=== PATIENT | female | born 1950 | race Caucasian/White ===

== ENCOUNTER → 2016-06-01 | Outpatient (CLI) | payer OTHER ==
[~2016-06-01] MED LIST: AMOX500T3 OR; ASPCH81X PO; CPR500 PO; CRESTOR PO; FLM4 PO; LISI20TA PO; LRT5 PO; METF-384 PO; METO100T44 PO; MULT-506 PO; NVLGI7030 SC; ONDA4TAB65 OR; PLN5 PO; RISACAL-D OR
--- NOTE | 2016-06-01 16:34 | MAMMOGRAPHY REPORT ---
BILATERAL DIGITAL SCREENING MAMMOGRAM WITH CAD: 06/01/2016 CLINICAL HISTORY: Routine screening. Patient has no complaints. TECHNIQUE: Current study was also evaluated with a Computer Aided Detection (CAD) system. Bilatera l CC and MLO views were obtained. COMPARISON: Comparison is made to exams dated: 05/28/2015 mammogram, 05/27/2014 mammogram, 05/26/2013 mammogram, 05/23/2012 mammogram, 05/23/2011 mammogram, and 05/18/2010 mammogram - [facility]. BREAST COMPOSITION: The tissue of both breasts is almost entirely fatty. FINDINGS: No suspicious masses, calcifications, or areas of architectural distortion are noted in e ither breast. There has been no significant interval change compared to prior exams. Scattered bilat eral benign-appearing calcifications are not significantly changed. IMPRESSION: ACR BI-RADS CATEGORY 2: BENIGN There is no mammographic evidence of malignancy. A 1 year screening mammogram is recommended. The p atient will receive written notification of the results. Approximately 10% of breast cancers are not detected with mammography. A negative mammographic repor t should not delay biopsy if a clinically suggestive mass is present. Margarita Butts M.D. ah/:06/01/2016 14:46:03 Director Customer: Celestino CAMACHO(R)(M), [facility] letter sent: Normal 1/2 BI-RADS Code: ACR BI-RADS Category 2: Benign
== END | disposition home or self-care (01) ==
LOC: C.MAMM 13:28
PROVIDERS: ATTEND Family Medicine
DX: Z12.31 Encounter for screening mammogram for malignant neoplasm of breast (principal)

== ENCOUNTER → 2017-06-05 | Outpatient (CLI) | payer OTHER ==
--- NOTE | 2017-06-05 14:24 | MAMMOGRAPHY REPORT ---
BILATERAL DIGITAL SCREENING MAMMOGRAM TOMOSYNTHESIS WITH CAD: 06/05/2017 CLINICAL HISTORY: Routine screening. TECHNIQUE: Breast tomosynthesis in addition to standard 2D mammography was performed. Current study was also evaluated with a Computer Aided Detection (CAD) system. COMPARISON: Comparison is made to exams dated: 06/01/2016 mammogram, 05/27/2014 mammogram, 05/28/2015 m ammogram, 05/26/2013 mammogram, 05/23/2012 mammogram, and 05/23/2011 mammogram - [facility]. BREAST COMPOSITION: There are scattered areas of fibroglandular density in both breasts. FINDINGS: The Francisco's ligaments in the breasts are increasingly conspicuous comparing to prior mammo grams, likely due to the reported interval weight loss of 100 pounds. There are scattered stable adam ign coarse calcifications bilaterally. No new suspicious mass, architectural distortion or cluster o f microcalcifications is seen. IMPRESSION: ACR BI-RADS CATEGORY 1: NEGATIVE There is no mammographic evidence of malignancy. A 1 year screening mammogram is recommended. The pa tient will receive written notification of the results. Approximately 10% of breast cancers are not detected with mammography. A negative mammographic report should not delay biopsy if a clinically suggestive mass is present. Elsy Wu M.D. ay/:06/05/2017 11:17:45 [employer]: Celestino CAMACHO(R)(M), [facility] letter sent: Normal 1/2 BI-RADS Code: ACR BI-RADS Category 1: Negative
== END | disposition home or self-care (01) ==
LOC: C.MAMM 08:48
PROVIDERS: ATTEND Family Medicine
DX: Z12.31 Encounter for screening mammogram for malignant neoplasm of breast (principal)

== ENCOUNTER 2023-07-28 20:27 | Inpatient (IN) ==
[2023-07-28] MEDS: ACETAMINOPHEN 1,000 MG/100 ML VIAL IV STA (20:53)
[2023-07-28] MEDS: PROMETHAZINE 12.5 MG/50.5 ML BAG IV STA (20:53)
[2023-07-28] MEDS: FAMOTIDINE 20MG IV PUSH 20 MG/5 ML SYR IV STA (20:53)
[2023-07-28] MEDS: SODIUM CHLORIDE 0.9% 1,000 ML IV ONE (20:53)
[2023-07-28 21:19] LABS: Albumin Globulin Ratio 1.1 (0.9-2); Albumin Level 3.9 gm/dl (3.4-5.0); Bilirubin,Total 0.8 mg/dl (0.2-1.0); Creatinine Clr Calc Pharmacy 20.1 ml/min; Est GFR (African American) 23.4 ml/min; Est GFR (Non-African American) 20.2 ml/min; Globulin 3.4 gm/dl (2.5-4.0); Potassium 4.4 mmol/L (3.5-5.1); Total Protein 7.3 gm/dl (6.0-8.3)
[2023-07-28 21:20] LABS: Basophils # (auto) 0.02 K/uL (0.00-0.20); Basophils % (auto) 0.1 %; Eosinophils # (auto) 0.01 K/uL (0.00-0.50); Eosinophils % (auto) 0.1 %; Hemoglobin 13.7 g/dl (12.0-16.0); Immature Granulocytes # (auto) 0.04 K/uL (0.01-0.20); Immature Granulocytes % (auto) 0.3 %; Lymphocytes # (auto) 0.49 K/uL (1.20-3.40); Lymphocytes % (auto) 3.7 %; Mean Corpuscular Hemoglobin 31.5 pg (25.0-34.0); Mean Corpuscular Hgb Conc 32.6 g/dL (32.0-36.0); Mean Corpuscular Volume 96.6 fL (80.0-100.0); Mean Platelet Volume 10.4 fL (9.4-12.4); Monocytes # (auto) 0.84 K/uL (0.11-0.59); Monocytes % (auto) 6.3 %; Neutrophils % (auto) 89.5 %; Platelet Count 178 K/uL (130-400); RDW Coefficient of Variation 12.7 % (11.5-14.5); RDW Standard Deviation 45.7 fL (36.4-46.3); Red Blood Count 4.35 M/uL (4.20-5.40)
[2023-07-28 21:23] LABS: Prothrombin Time 10.7 Seconds (9.0-12.0)
[2023-07-28 21:38] LABS: Troponin I High Sensitivity 8.2 pg/ml (0-14)
--- NOTE | 2023-07-28 21:38 | Emergency Department Note ---
Impression & Plan Hydronephrosis due to obstruction of ureter, Sepsis, Ureterolithiasis ED Provider Note NAME: BRAN MANN AGE: 73 SEX: F : 1950 ARRIVES VIA: Ambulance INFORMANT: Patient ED PROVIDER(S): Bart Guzmán MD CHIEF COMPLAINT: Back pain, weakness PLAN: Disposition: Admit MEDICAL DECISION MAKING: The patient is a pleasant 73-year-old woman with a past medical history of dementia, hypertension, hyperlipidemia, type 2 diabetes, nephrolithiasis who presents to the emergency department via EMS from her personal-snf at [facility] where she is in the memory care unit per EMS report, and accompanied by her brother, for evaluation of low back pain and fatigue/malaise with nausea and vomiting that began today. Patient denies any cough or congestion. She has any chest pain or shortness of breath. On my evaluation the patient is febrile to 37.8 with heart in the 90s and vital signs otherwise stable. She appears clinically dry. Abdomen is nontender. EKG demonstrates right bundle branch block with LVH without overt acute ischemia. CXR negative for acute cardiopulmonary process per my personal preliminary review/interpretation. WBC 13.4 K, with neutrophil predominance but no left shift, nonspecific. H/H and platelets within normal limits. Chemistry with mild metabolic acidosis with bicarbonate of 20 with normal anion gap. Creatinine is 2.3 mildly increased from the patient's baseline 1.8. Lactic acid is 1.0, within normal limits. Electrolytes and LFTs unremarkable. High-sensitivity troponin 8.2, within normal limits. Lipase is normal. Procalcitonin is not elevated. Respiratory viral panel/Bio[employer] was negative. CT of the abdomen pelvis demonstrates moderate left hydronephrosis secondary to a 5 x 3.9 mm proximal ureteral calculus. Given this finding the patient was treated with empiric IV cefepime. IV fluid hydration provided cautiously given renal insufficiency with 1 L normal saline and 30 cc/KG deferred. [id number] urine dip did not show convincing evidence of infection. Formal urinalysis subsequently with WBCs and RBCs but no bacteria or nitrates. Case was discussed with Dr. Washburn, [facility] hospitalist who will evaluate the patient for admission. Case also discussed with urology, Aakash Ruiz, PAC with Dr. Knight, urology on- call. Appreciate consultation and recommendations. Further management per admitting team. Triage Nursing notes reviewed and agree them. Prior/external medical records reviewed Vital Signs: reviewed Differential diagnosis: Infection, dehydration, metabolic abnormality, hypo/hyperglycemia, electrolyte disturbance, anemia, hypoxia, cardiac sources, intracerebral event, toxicologic, neurologic, as well as other pathologies. ER treatment provided: See below. Diagnostics interpreted by me: ECG: Normal sinus rhythm, 91 bpm, no ectopy, right bundle branch block, left anterior fascicular block, LVH, no overt ST elevation or depression, QTc 501, QRS 144. Cardiac Monitoring: An order for continuous cardiac monitoring was placed and demonstrated Laboratory studies: See below Imaging studies: See below Consultation(s): Dr. Washburn, [facility] hospitalist Aakash Ruiz, PAC with Dr. Knight, urology on-call HPI: The patient is a pleasant 73-year-old woman with a past medical history of dementia, hypertension, hyperlipidemia, type 2 diabetes, nephrolithiasis who presents to the emergency department via EMS from her personal-snf at [facility] where she is in the memory care unit per EMS report, and accompanied by her brother, for evaluation of low back pain and fatigue/malaise with nausea and vomiting that began today. Patient denies any cough or congestion. She has any chest pain or shortness of breath. ROS: See above HPI for pertinent positives & negatives. A total of 10 systems reviewed and were otherwise negative. VITALS:See Below PHYSICAL EXAMINATION: GENERAL: Awake, alert, fatigued-appearing, in no distress, BMI 29.7. HENT: Normocephalic, atraumatic. Oropharynx with dry mucous membranes and otherwise unremarkable. EYES: Normal conjunctiva. Sclera non-icteric. NECK: Supple. No nuchal rigidity. FROM. No JVD. RESPIRATORY: Clear to auscultation. CARDIAC: Regular rate, normal rhythm. Extremities warm and well perfused. Pulses equal. ABDOMEN: Soft, non-distended. No tenderness to palpation. No rebound or guarding. No masses. MUSCULOSKELETAL: Chest examination reveals no tenderness. The back is symmetrical on inspection without obvious abnormality. There is no CVA tenderness to palpation. No joint edema. LOWER EXTREMITIES: Calves are equal size bilaterally and non-tender. No edema. No discoloration. NEURO: Normal sensorium. No sensory or motor deficits noted. SKIN: No rash or jaundice noted. ED COURSE: Critical Care: I have personally spent greater than 35 minutes of critical care time in the direct management of this patient. This includes bedside care, interpretation of diagnostic studies, and testing, discussion with consultants, patient, and family members, and other required patient management activities. This 35 minutes is in excess of all separately billable procedures. Bart Guzmán MD Past Med/Surg History Problem List (Updated 07/29/23 @ 05:24 by Bart Guzmán MD) Ureterolithiasis (Acute) Sepsis (Acute) Hydronephrosis due to obstruction of ureter (Acute) Sepsis Nephrolithiasis Social History Smoking Status: Never smoker Hx Alcohol Use: No Hx Substance Use: No Preferred Language: Australian Communication Ability: Effective Field Checker Required: No Beliefs That Will Affect Care: None Current Living Situation: [facility] Current Living Situation Comment: [facility] Other Information That Helps Us Care for You: No Feels Safe at Home: Yes Safety Concerns: Feels Safe At This Time Assistive Devices: Glasses Allergies Allergies Allergy/AdvReac Type Severity Reaction Status Date / Time codeine AdvReac Severe CONFUSION, Verified 06/14/21 22:19 UNCONTROLABLE ACTIONS-PER [facility] morphine AdvReac Unknown Verified 07/29/23 00:32 Home Meds Home Medications Medication Instructions Recorded Confirmed amoxicillin 500 mg capsule 2,000 mg PO DIRECTED PRN PRIOR 06/14/21 07/29/23 TO DENTAL APPOINTMENTS atorvastatin 80 mg tablet 80 mg PO QAM 06/14/21 07/29/23 felodipine 5 mg tablet,extended 10 mg PO QAM 06/14/21 07/29/23 release 24 hr fluticasone propionate 50 2 spray intranasal DAILY 06/14/21 07/29/23 mcg/actuation nasal spray,suspension lisinopril 40 mg tablet 40 mg PO QAM 06/14/21 07/29/23 metoprolol succinate 100 mg 100 mg PO QAM 06/14/21 07/29/23 tablet,extended release 24 hr acetaminophen 500 mg tablet 1,000 mg PO TID PRN Pain 07/29/23 07/29/23 ascorbic acid (vitamin C) 1,000 mg 1 g PO QAM 07/29/23 07/29/23 tablet (Vitamin C) azelastine 137 mcg (0.1 %) nasal 1 spray intranasal BID 07/29/23 07/29/23 spray aerosol diclofenac sodium 1 % topical gel 4 g topical TID PRN MODERATE PAIN 07/29/23 07/29/23 IN FEET docusate sodium 100 mg capsule 100 mg PO HS 07/29/23 07/29/23 empagliflozin 10 mg tablet 10 mg PO QAM 07/29/23 07/29/23 (Jardiance) metoprolol succinate 25 mg 25 mg PO QAM 07/29/23 07/29/23 tablet,extended release 24 hr ondansetron HCl 4 mg tablet 4 mg PO Q6 PRN Nausea And Vomiting 07/29/23 07/29/23 semaglutide 1 mg/dose (4 mg/3 mL) 1 mg subcut WK 07/29/23 07/29/23 subcutaneous pen injector (Ozempic) vitamin E (dl, acetate) 180 mg 180 mg PO QAM 07/29/23 07/29/23 (400 unit) capsule Results & Data (ED) Vital Signs Vital Signs - 24 hr 07/28/23 20:37 07/28/23 20:37 07/28/23 20:48 Temperature 37.8 C H 37.8 C H Temperature Source Oral Oral Pulse Rate 93 H Pulse Rate [Apical] 91 H Respiratory Rate 18 16 Respiratory Depth Normal Blood Pressure 192/91 H Blood Pressure [Right Arm] 192/91 H Blood Pressure Mean 124 Blood Pressure Mean [Right Arm] 124 Pulse Oximetry 95 95 94 Oxygen Delivery Method Room Air Room Air Room Air Sepsis Recent Fever Within 48 Hours No Sepsis New/Unexplained Change in Mental Status No Sepsis Action Taken by Nursing No Action Required 07/28/23 20:53 07/28/23 22:14 07/28/23 22:19 Temperature 38.2 C H 37.3 C Temperature Source Rectal Oral Pulse Rate 91 H Pulse Rate [Apical] 92 H Respiratory Rate 17 Respiratory Depth Blood Pressure Blood Pressure [Right Arm] 183/96 H Blood Pressure Mean Blood Pressure Mean [Right Arm] 125 Pulse Oximetry 97 Oxygen Delivery Method Room Air Sepsis Recent Fever Within 48 Hours Sepsis New/Unexplained Change in Mental Status Sepsis Action Taken by Nursing Laboratory Data Attestation: I reviewed the patient's lab results. 07/29/23 03:53 07/29/23 03:53 Lab Results 07/28/23 07/28/23 07/28/23 Range/Units 20:45 21:00 23:54 WBC 13.40 H (4.8-10.8) K/ul RBC 4.35 (4.20-5.40) M/uL Hgb 13.7 (12.0-16.0) g/dl Hct 42.0 (37.0-47.0) % MCV 96.6 (80.0-100.0) fL MCH 31.5 (25.0-34.0) pg MCHC 32.6 (32.0-36.0) g/dL RDW Std Deviation 45.7 (36.4-46.3) fL RDW Coeff of Butch 12.7 (11.5-14.5) % Plt Count 178 (130-400) K/uL MPV 10.4 (9.4-12.4) fL Immature Gran % (Auto) 0.3 % Neut % (Auto) 89.5 % Lymph % (Auto) 3.7 % [place] % (Auto) 6.3 % Eos % (Auto) 0.1 % Baso % (Auto) 0.1 % Neut # (Auto) 12.00 H (1.40-6.50) K/uL Lymph # (Auto) 0.49 L (1.20-3.40) K/uL [place] # (Auto) 0.84 H (0.11-0.59) K/uL Eos # (Auto) 0.01 (0.00-0.50) K/uL Baso # (Auto) 0.02 (0.00-0.20) K/uL Immature Gran # (Auto) 0.04 (0.01-0.20) K/uL PT 10.7 (9.0-12.0) Seconds INR 1.0 (0.9-1.1) Sodium 137 (136-145) mmol/L Potassium 4.4 (3.5-5.1) mmol/L Chloride 106 (98-107) mmol/L Carbon Dioxide 20 L (21-32) mmol/L Anion Gap 11 (3-11) BUN 37 H (6-23) mg/dl Creatinine 2.31 H (0.6-1.2) mg/dl Est Cr Clr Drug Dosing 20.1 ml/min Est GFR ( Amer) 23.4 ml/min Est GFR (Non-Af Amer) 20.2 ml/min BUN/Creatinine Ratio 16.0 (10-20) Glucose 317 H* (70-99(Fasting)) mg/dl Lactate 1.0 (0.4-2.0) mmol/L Calcium 10.0 (8.6-10.3) mg/dl Magnesium 1.9 (1.7-2.4) mg/dl Total Bilirubin 0.8 (0.2-1.0) mg/dl AST 14 (13-39) U/L ALT 16 (7-52) U/L Alkaline Phosphatase 118 H (34-104) U/L Troponin I High Sens 8.2 (0-14) pg/ml Total Protein 7.3 (6.0-8.3) gm/dl Albumin 3.9 (3.4-5.0) gm/dl Globulin 3.4 (2.5-4.0) gm/dl Albumin/Globulin Ratio 1.1 (0.9-2) Lipase 26 (11-82) U/L Procalcitonin 0.37 (0-0.5) ng/ml Urine Color Yellow Urine Appearance Clear (Clear) Urine pH 6.5 (4.5-7.5) POC Urine pH 5 (4.5-7.5) Ur Specific [place] 1.019 (1.000-1.030) Urine Protein 3+ H (Negative) POC Urine Protein 3+ H (Negative) Urine Glucose (UA) 3+ H (Negative) POC Ur Glucose (UA) 1000 H (Normal) Urine Ketones 1+ H (Negative) POC Urine Ketones 1+ (Small) H (Negative) Urine Blood 2+ H (Negative) POC Urine Blood 50 H (Negative) Urine Nitrite Negative (Negative) POC Urine Nitrite Negative (Negative) Urine Bilirubin Negative (Negative) POC Urine Bilirubin Negative (Negative) Urine Urobilinogen Negative (Negative) POC Urine Urobilinogen Normal (Normal) Ur Leukocyte Esterase Negative (Negative) POC U Leukocyte Esteras Negative (Negative) Urine WBC (Auto) 21-50 H (0-5) /hpf Urine RBC (Auto) 11-20 H (0-2) /hpf U Hyaline Cast (Auto) 0-2 (0-2) /lpf U Epithel Cells (Auto) 0-2 (0-2) /hpf Urine Bacteria (Auto) None Seen (None Seen) Adenovirus (PCR) Not Detected (NotDetected) B. pertussis DNA (PCR) Not Detected (NotDetected) B.parapertussis DNA PCR Not Detected (NotDetected) C. pneumoniae DNA (PCR) Not Detected (NotDetected) Coronavirus OC43 (PCR) Not Detected (NotDetected) Coronavirus HKU1 (PCR) Not Detected (NotDetected) Coronavirus 229E (PCR) Not Detected (NotDetected) SARS-CoV-2 (PCR) Not Detected (NotDetected) Coronavirus NL63 (PCR) Not Detected (NotDetected) Human Metapneumovir PCR Not Detected (NotDetected) Influenza Type A (PCR) Not Detected (NotDetected) Influenza Type B (PCR) Not Detected (NotDetected) M. pneumoniae (PCR) Not Detected (NotDetected) Parainfluenza 1 (PCR) Not Detected (NotDetected) Parainfluenza 2 (PCR) Not Detected (NotDetected) Parainfluenza 3 (PCR) Not Detected (NotDetected) Parainfluenza 4 (PCR) Not Detected (NotDetected) RSV (PCR) Not Detected (NotDetected) Entero/Rhino (PCR) Not Detected (NotDetected) Administered Medications Sodium Chloride (Nss) 1,000 mls @ 80 mls/hr IV .[id number] ONE Stop: 07/29/23 13:08 Last Admin: 07/29/23 01:16 Dose: 80 mls/hr Documented By: AKIL Insulin Aspart (Insulin Aspart Per Unit Charge) 0 units SC Q6 JIGAR Stop: 08/28/23 00:44 Last Admin: 07/29/23 01:16 Dose: 7 units Documented By: AKIL Co-signed By: EJW Discontinued Medications Sodium Chloride (Nss) 1,000 mls @ 999 mls/hr IV .[id number] ONE Stop: 07/28/23 21:41 Last Infusion: 07/28/23 23:09 Dose: Infused Documented By: Admin: 07/28/23 20:53 Dose: 999 mls/hr Documented By: BCAb Acetaminophen (Ofirmev) 1,000 mg in 100 mls @ 400 mls/hr IV NOW STA Stop: 07/28/23 20:55 Last Infusion: 07/28/23 21:20 Dose: Infused Documented By: Admin: 07/28/23 20:53 Dose: 400 mls/hr Documented By: VANNA Promethazine HCl (Phenergan) 12.5 mg in 50.5 mls @ 202 mls/hr IV NOW STA Stop: 07/28/23 20:55 Last Infusion: 07/28/23 21:43 Dose: Infused Documented By: Admin: 07/28/23 20:53 Dose: 202 mls/hr Documented By: VANNA Famotidine (Pepcid 20mg Iv Push) 20 mg in 5 mls @ 2.5 mls/min IV NOW STA Stop: 07/28/23 20:43 Last Admin: 07/28/23 20:53 Dose: 2.5 mls/min Documented By: VANNA Cefepime HCl (Maxipime) 2,000 mg in 20 mls @ 5 mls/min IV NOW STA; Protocol Stop: 07/28/23 23:58 Last Admin: 07/29/23 01:16 Dose: 5 mls/min Documented By: AKIL Insulin Glargine (Lantus Per Unit Charge) 10 units SQ NOW STA Stop: 07/29/23 00:45 Last Admin: 07/29/23 01:16 Dose: 10 units Documented By: AKIL Co-signed By: KEV Metoprolol Tartrate (Metoprolol Tartrate 1 Mg/Ml Vial) 2.5 mg IV NOW STA Stop: 07/29/23 00:12 Last Admin: 07/29/23 01:15 Dose: 2.5 mg Documented By: AKIL Metoprolol Tartrate (Metoprolol Tartrate 1 Mg/Ml Vial) 2.5 mg IV NOW STA Stop: 07/29/23 02:45 Last Admin: 07/29/23 02:55 Dose: 2.5 mg Documented By: LIZ Tamsulosin HCl (Tamsulosin Hcl 0.4 Mg Cap) 0.4 mg PO NOW ONE Stop: 07/28/23 23:58 Last Admin: 07/29/23 01:15 Dose: 0.4 mg Documented By: AKIL Imaging Data Radiologist's Impression: Abdomen/Pelvis CT 07/28/23 21:09 Exam(s): CT ABDOMEN + PELVIS Without Contrast EXAM: CT Abdomen and Pelvis Without Intravenous Contrast CLINICAL HISTORY: Back Pain and fever TECHNIQUE: Axial computed tomography images of the abdomen and pelvis without intravenous contrast. CTDI is 23.75 mGy and DLP is 1165.62 mGy-cm. Automated exposure control was utilized for the study. A dose lowering technique was utilized adhering to the principles of ALARA. COMPARISON: CT abdomen and pelvis 06/14/2021 FINDINGS: Lung bases: Unremarkable. No mass. No consolidation. ABDOMEN: Liver: Unremarkable. Gallbladder and bile ducts: Cholecystectomy. No ductal dilation. Pancreas: Unremarkable. No ductal dilation. Spleen: Unremarkable. No splenomegaly. Adrenals: Unremarkable. No mass. Kidneys and ureters: Moderate left hydronephrosis secondary to a 5 x 3 9 mm proximal ureteral calculus. Additional nonobstructing renal calculi measure up to 6 mm. Simple appearing bilateral renal cysts are present, no follow up is needed. The kidneys are otherwise unremarkable. No hydronephrosis. No right hydronephrosis. Stomach and bowel: Diverticulosis. No obstruction. No mucosal thickening. PELVIS: Appendix: Normal appendix. Bladder: Unremarkable. No stones. Reproductive: Unremarkable as visualized. ABDOMEN and PELVIS: Intraperitoneal space: Unremarkable. No free air. No significant fluid collection. Bones/joints: There are degenerative changes of the spine. No acute fracture. No dislocation. Soft tissues: Unremarkable. Vasculature: Mild atherosclerosis. No abdominal aortic aneurysm. Lymph nodes: Unremarkable. No enlarged lymph nodes. IMPRESSION: 1. Moderate left hydronephrosis secondary to a 5 x 3 9 mm proximal ureteral calculus. 2. Additional nonobstructing renal calculi measure up to 6 mm. 3. Diverticulosis. Electronically signed by: Emilie Carcamo MD 07/28/23 23:09 PM Discharge Plan Visit Data Chief Complaint: Flank Pain Stated Complaint: lt FLANK PAIN ED Provider: Bart Guzmán Discharge Problem: Hydronephrosis due to obstruction of ureter, Sepsis, Ureterolithiasis Patient Disposition: Admitted As Inpatient Discharge Instructions Interventions: ED Discharge Assessment Last Done: 07/29/23 02:28 Discharge Problem: Sepsis Qualifiers: Sepsis type: sepsis due to unspecified organism Sepsis acute organ dysfunction status: unspecified Qualified Code(s): A41.9 - Sepsis, unspecified organism
[2023-07-28 21:43] LABS: Adenovirus PCR Not Detected (NotDetected); Bordetella parapertussis PCR Not Detected (NotDetected); Bordetella pertussis PCR Not Detected (NotDetected); Chlamydia pneumoniae PCR Not Detected (NotDetected); Coronavirus 229E PCR Not Detected (NotDetected); Coronavirus CoV-2 (COVID19)PCR Not Detected (NotDetected); Coronavirus HKU1 PCR Not Detected (NotDetected); Coronavirus NL63 PCR Not Detected (NotDetected); Coronavirus OC43PCR Not Detected (NotDetected); Human Metapneumovirus PCR Not Detected (NotDetected); Influenza A PCR Not Detected (NotDetected); Influenza B PCR Not Detected (NotDetected); Mycoplasma pneumoniae PCR Not Detected (NotDetected); Parainfluenza Virus 1 PCR Not Detected (NotDetected); Parainfluenza Virus 2 PCR Not Detected (NotDetected); Parainfluenza Virus 3 PCR Not Detected (NotDetected); Parainfluenza Virus 4 PCR Not Detected (NotDetected); Respiratory Syncytial VirusPCR Not Detected (NotDetected); Rhinovirus/Enterovirus PCR Not Detected (NotDetected)
--- NOTE | 2023-07-28 23:09 | CT Scan Report ---
Exam(s): CT ABDOMEN + PELVIS Without Contrast EXAM: CT Abdomen and Pelvis Without Intravenous Contrast CLINICAL HISTORY: Back Pain and fever TECHNIQUE: Axial computed tomography images of the abdomen and pelvis without intravenous contrast. CTDI is 23.75 mGy and DLP is 1165.62 mGy-cm. Automated exposure control was utilized for the study. A dose lowering technique was utilized adhering to the principles of ALARA. COMPARISON: CT abdomen and pelvis 06/14/2021 FINDINGS: Lung bases: Unremarkable. No mass. No consolidation. ABDOMEN: Liver: Unremarkable. Gallbladder and bile ducts: Cholecystectomy. No ductal dilation. Pancreas: Unremarkable. No ductal dilation. Spleen: Unremarkable. No splenomegaly. Adrenals: Unremarkable. No mass. Kidneys and ureters: Moderate left hydronephrosis secondary to a 5 x 3 9 mm proximal ureteral calculus. Additional nonobstructing renal calculi measure up to 6 mm. Simple appearing bilateral renal cysts are present, no follow up is needed. The kidneys are otherwise unremarkable. No hydronephrosis. No right hydronephrosis. Stomach and bowel: Diverticulosis. No obstruction. No mucosal thickening. PELVIS: Appendix: Normal appendix. Bladder: Unremarkable. No stones. Reproductive: Unremarkable as visualized. ABDOMEN and PELVIS: Intraperitoneal space: Unremarkable. No free air. No significant fluid collection. Bones/joints: There are degenerative changes of the spine. No acute fracture. No dislocation. Soft tissues: Unremarkable. Vasculature: Mild atherosclerosis. No abdominal aortic aneurysm. Lymph nodes: Unremarkable. No enlarged lymph nodes. IMPRESSION: 1. Moderate left hydronephrosis secondary to a 5 x 3 9 mm proximal ureteral calculus. 2. Additional nonobstructing renal calculi measure up to 6 mm. 3. Diverticulosis. Electronically signed by: Emilie Carcamo MD 07/28/23 23:09 PM
--- NOTE | 2023-07-28 23:58 | History & Physical Report ---
Date of Service July 28, 2023 Assessment & Plan (1) Sepsis: Plan: Secondary to obstructive uropathy Hypertensive urgency secondary to above severe MR status post surgery hyperlipidemia on statin Rx ANG currently not on CPAP DM2 on oral medications, patient markedly hyperglycemic at the ER, reasonable control as of last hemoglobin A1c of 8.12 September 2022 CRI, creatinine close to baseline hyperparathyroidism secondary to kidney disease as per outpatient nephrology notes dementia, patient at baseline malignant melanoma status post surgery Medical telemetry given hypertensive urgency IV Lopressor 1 dose now CS, Ceftriaxone Analgesia Flomax, strain urine Urology consult Re: Obstructive uropathy (ED provider to contact service as per discussion.) N.p.o. until seen by urology in anticipation of procedure Basal bolus insulin adjusted for n.p.o. status, ISS BG goal 1 10-1 40, update hemoglobin A1c Delirium precautions DVT prophylaxis with Heparin subcu Full code as per patient brother/POA Mr. Héctor Escobar. He requests updates from providers through [phone]. Text document was generated using [employer] voice recognition software. It may contain grammatical or spelling errors. Kindly contact undersigned for clarification of any documentation item in question. History of Present Illness Chief Complaint: Left flank pain Primary Care Provider: [facility], [facility] History obtained from patient, family, and records. Patient is a fair historian. Medical history significant for severe MR status post surgery, bifascicular block as per records, hypertension, hyperlipidemia, ANG currently not on CPAP, DM2 on oral medications, CRI (baseline creatinine 2s), hyperparathyroidism as per records, dementia, urolithiasis, malignant melanoma status post surgery. 1 day history of achy left flank pain associated with nausea, emesis. No hematuria as per patient. Not as bad as prior kidney stones as per patient. No headache, no chest pain, no SOB. SBP 190s upon arrival at the ER. IV cefepime administered at the ER. Medical History as above Surgical History : Cholecystectomy, mitral valve repair, right lower leg melanoma excision, cataract surgeries Family History : DM, TIA, thyroid disease Personal/Social history : Non-smoker, no EtOH intake, retired from factory work, personal halfway resident Allergies Allergy/AdvReac Type Severity Reaction Status Date / Time codeine AdvReac Severe CONFUSION, Verified 06/14/21 22:19 UNCONTROLABLE ACTIONS-PER GMG morphine AdvReac Unknown Verified 07/29/23 00:32 Home Medications Medication Instructions Recorded Confirmed Type amoxicillin 500 mg capsule 2,000 mg PO DIRECTED PRN PRIOR 06/14/21 07/29/23 History TO DENTAL APPOINTMENTS atorvastatin 80 mg tablet 80 mg PO QAM 06/14/21 07/29/23 History felodipine 5 mg tablet,extended 10 mg PO QAM 06/14/21 07/29/23 History release 24 hr fluticasone propionate 50 2 spray intranasal DAILY 06/14/21 07/29/23 History mcg/actuation nasal spray,suspension lisinopril 40 mg tablet 40 mg PO QAM 06/14/21 07/29/23 History metoprolol succinate 100 mg 100 mg PO QAM 06/14/21 07/29/23 History tablet,extended release 24 hr acetaminophen 500 mg tablet 1,000 mg PO TID PRN Pain 07/29/23 07/29/23 History ascorbic acid (vitamin C) 1,000 mg 1 g PO QAM 07/29/23 07/29/23 History tablet (Vitamin C) azelastine 137 mcg (0.1 %) nasal 1 spray intranasal BID 07/29/23 07/29/23 History spray aerosol diclofenac sodium 1 % topical gel 4 g topical TID PRN MODERATE PAIN 07/29/23 07/29/23 History IN FEET docusate sodium 100 mg capsule 100 mg PO HS 07/29/23 07/29/23 History empagliflozin 10 mg tablet 10 mg PO QAM 07/29/23 07/29/23 History (Jardiance) metoprolol succinate 25 mg 25 mg PO QAM 07/29/23 07/29/23 History tablet,extended release 24 hr ondansetron HCl 4 mg tablet 4 mg PO Q6 PRN Nausea And Vomiting 07/29/23 07/29/23 History semaglutide 1 mg/dose (4 mg/3 mL) 1 mg subcut WK 07/29/23 07/29/23 History subcutaneous pen injector (Ozempic) vitamin E (dl, acetate) 180 mg 180 mg PO QAM 07/29/23 07/29/23 History (400 unit) capsule Past Med/Surg History Problem List (Updated 07/29/23 @ 01:14 by Jesus Washburn MD) Sepsis Nephrolithiasis Social History Smoking Status: Never smoker Preferred Language: Danish Feels Safe at Home: Yes Review of Systems Review of Systems: As per HPI, all other systems reviewed and negative Physical Exam Physical Exam: GENERAL: Demented, oriented to place,, pleasant, no respiratory distress SKIN: Normal color, warm HEENT: [place] palpebral conjunctivae, no ptosis, dry buccal mucosa NECK : Supple, no tenderness CHEST : CTA, no tenderness HEART : RRR, no obvious murmurs ABDOMEN: Some distention, nontender BACK : Left flank tenderness EXTREMITIES : No LE swelling/tenderness, no other conspicuous deformities noted NEUROLOGIC : Demented, no facial asymmetry, no other gross focality Results & Data Results & Data Vital Signs (Past 12 Hours) Vital Signs Temp Pulse Pulse Resp BP BP Pulse Ox 07/28/23 22:19 37.3 C 92 H 17 183/96 H 97 07/28/23 22:14 91 H 07/28/23 20:53 38.2 C H 07/28/23 20:48 94 07/28/23 20:37 37.8 C H 91 H 16 192/91 H 95 07/28/23 20:37 37.8 C H 93 H 18 192/91 H 95 O2 Del Method 07/28/23 22:19 Room Air 07/28/23 22:14 07/28/23 20:53 07/28/23 20:48 Room Air 07/28/23 20:37 Room Air 07/28/23 20:37 Room Air Laboratory Results Laboratory Results WBC 13.40 K/ul (4.8-10.8) H 07/28/23 20:45 RBC 4.35 M/uL (4.20-5.40) 07/28/23 20:45 Hgb 13.7 g/dl (12.0-16.0) 07/28/23 20:45 Hct 42.0 % (37.0-47.0) 07/28/23 20:45 MCV 96.6 fL (80.0-100.0) 07/28/23 20:45 MCH 31.5 pg (25.0-34.0) 07/28/23 20:45 MCHC 32.6 g/dL (32.0-36.0) 07/28/23 20:45 RDW Std Deviation 45.7 fL (36.4-46.3) 07/28/23 20:45 RDW Coeff of Butch 12.7 % (11.5-14.5) 07/28/23 20:45 Plt Count 178 K/uL (130-400) 07/28/23 20:45 MPV 10.4 fL (9.4-12.4) 07/28/23 20:45 Immature Gran % (Auto) 0.3 % 07/28/23 20:45 Neut % (Auto) 89.5 % 07/28/23 20:45 Lymph % (Auto) 3.7 % 07/28/23 20:45 [place] % (Auto) 6.3 % 07/28/23 20:45 Eos % (Auto) 0.1 % 07/28/23 20:45 Baso % (Auto) 0.1 % 07/28/23 20:45 Neut # (Auto) 12.00 K/uL (1.40-6.50) H 07/28/23 20:45 Lymph # (Auto) 0.49 K/uL (1.20-3.40) L 07/28/23 20:45 [place] # (Auto) 0.84 K/uL (0.11-0.59) H 07/28/23 20:45 Eos # (Auto) 0.01 K/uL (0.00-0.50) 07/28/23 20:45 Baso # (Auto) 0.02 K/uL (0.00-0.20) 07/28/23 20:45 Immature Gran # (Auto) 0.04 K/uL (0.01-0.20) 07/28/23 20:45 PT 10.7 Seconds (9.0-12.0) 07/28/23 20:45 INR 1.0 (0.9-1.1) 07/28/23 20:45 Sodium 137 mmol/L (136-145) 07/28/23 20:45 Potassium 4.4 mmol/L (3.5-5.1) 07/28/23 20:45 Chloride 106 mmol/L (98-107) 07/28/23 20:45 Carbon Dioxide 20 mmol/L (21-32) L 07/28/23 20:45 Anion Gap 11 (3-11) 07/28/23 20:45 BUN 37 mg/dl (6-23) H 07/28/23 20:45 Creatinine 2.31 mg/dl (0.6-1.2) H 07/28/23 20:45 Est Cr Clr Drug Dosing 20.1 ml/min 07/28/23 20:45 Est GFR ( Amer) 23.4 ml/min 07/28/23 20:45 Est GFR (Non-Af Amer) 20.2 ml/min 07/28/23 20:45 BUN/Creatinine Ratio 16.0 (10-20) 07/28/23 20:45 Glucose 317 mg/dl (70-99(Fasting)) H* 07/28/23 20:45 Lactate 1.0 mmol/L (0.4-2.0) 07/28/23 21:00 Calcium 10.0 mg/dl (8.6-10.3) 07/28/23 20:45 Total Bilirubin 0.8 mg/dl (0.2-1.0) 07/28/23 20:45 AST 14 U/L (13-39) 07/28/23 20:45 ALT 16 U/L (7-52) 07/28/23 20:45 Alkaline Phosphatase 118 U/L (34-104) H 07/28/23 20:45 Troponin I High Sens 8.2 pg/ml (0-14) 07/28/23 20:45 Total Protein 7.3 gm/dl (6.0-8.3) 07/28/23 20:45 Albumin 3.9 gm/dl (3.4-5.0) 07/28/23 20:45 Globulin 3.4 gm/dl (2.5-4.0) 07/28/23 20:45 Albumin/Globulin Ratio 1.1 (0.9-2) 07/28/23 20:45 Lipase 26 U/L (11-82) 07/28/23 20:45 Procalcitonin 0.37 ng/ml (0-0.5) 07/28/23 20:45 Adenovirus (PCR) Not Detected (NotDetected) 07/28/23 20:45 B. pertussis DNA (PCR) Not Detected (NotDetected) 07/28/23 20:45 B.parapertussis DNA PCR Not Detected (NotDetected) 07/28/23 20:45 C. pneumoniae DNA (PCR) Not Detected (NotDetected) 07/28/23 20:45 Coronavirus OC43 (PCR) Not Detected (NotDetected) 07/28/23 20:45 Coronavirus HKU1 (PCR) Not Detected (NotDetected) 07/28/23 20:45 Coronavirus 229E (PCR) Not Detected (NotDetected) 07/28/23 20:45 SARS-CoV-2 (PCR) Not Detected (NotDetected) 07/28/23 20:45 Coronavirus NL63 (PCR) Not Detected (NotDetected) 07/28/23 20:45 Human Metapneumovir PCR Not Detected (NotDetected) 07/28/23 20:45 Influenza Type A (PCR) Not Detected (NotDetected) 07/28/23 20:45 Influenza Type B (PCR) Not Detected (NotDetected) 07/28/23 20:45 M. pneumoniae (PCR) Not Detected (NotDetected) 07/28/23 20:45 Parainfluenza 1 (PCR) Not Detected (NotDetected) 07/28/23 20:45 Parainfluenza 2 (PCR) Not Detected (NotDetected) 07/28/23 20:45 Parainfluenza 3 (PCR) Not Detected (NotDetected) 07/28/23 20:45 Parainfluenza 4 (PCR) Not Detected (NotDetected) 07/28/23 20:45 RSV (PCR) Not Detected (NotDetected) 07/28/23 20:45 Entero/Rhino (PCR) Not Detected (NotDetected) 07/28/23 20:45 Impressions Abdomen/Pelvis CT 07/28/23 21:09 Exam(s): CT ABDOMEN + PELVIS Without Contrast EXAM: CT Abdomen and Pelvis Without Intravenous Contrast CLINICAL HISTORY: Back Pain and fever TECHNIQUE: Axial computed tomography images of the abdomen and pelvis without intravenous contrast. CTDI is 23.75 mGy and DLP is 1165.62 mGy-cm. Automated exposure control was utilized for the study. A dose lowering technique was utilized adhering to the principles of ALARA. COMPARISON: CT abdomen and pelvis 06/14/2021 FINDINGS: Lung bases: Unremarkable. No mass. No consolidation. ABDOMEN: Liver: Unremarkable. Gallbladder and bile ducts: Cholecystectomy. No ductal dilation. Pancreas: Unremarkable. No ductal dilation. Spleen: Unremarkable. No splenomegaly. Adrenals: Unremarkable. No mass. Kidneys and ureters: Moderate left hydronephrosis secondary to a 5 x 3 9 mm proximal ureteral calculus. Additional nonobstructing renal calculi measure up to 6 mm. Simple appearing bilateral renal cysts are present, no follow up is needed. The kidneys are otherwise unremarkable. No hydronephrosis. No right hydronephrosis. Stomach and bowel: Diverticulosis. No obstruction. No mucosal thickening. PELVIS: Appendix: Normal appendix. Bladder: Unremarkable. No stones. Reproductive: Unremarkable as visualized. ABDOMEN and PELVIS: Intraperitoneal space: Unremarkable. No free air. No significant fluid collection. Bones/joints: There are degenerative changes of the spine. No acute fracture. No dislocation. Soft tissues: Unremarkable. Vasculature: Mild atherosclerosis. No abdominal aortic aneurysm. Lymph nodes: Unremarkable. No enlarged lymph nodes. IMPRESSION: 1. Moderate left hydronephrosis secondary to a 5 x 3 9 mm proximal ureteral calculus. 2. Additional nonobstructing renal calculi measure up to 6 mm. 3. Diverticulosis. Electronically signed by: Emilie Carcamo MD 07/28/23 23:09 PM Diagnostic Findings Chest x-ray as per my interpretation atelectasis EKG as per my interpretation : Rate 90, NSR, LAD, LAFB, RBBB, LVH, no ischemia
[2023-07-29 00:08] LABS: POC Urine Bilirubin Negative (Negative); POC Urine Blood 50 (Negative); POC Urine Glucose 1000 (Normal); POC Urine Ketones 1+ (Small) (Negative); POC Urine Leukocytes Negative (Negative); POC Urine Nitrite Negative (Negative); POC Urine Protein 3+ (Negative); POC Urine Urobilinogen Normal (Normal); POC Urine pH 5 (4.5-7.5)
--- NOTE | 2023-07-29 00:29 | Urology Consultation ---
<Statement entered by Elias Knight MD - 07/29/23 03:40> I have discussed Ms. Escobar' case with Nicholas Ruiz PA-C and agree with the above documentation. She currently has FREDERIC in the setting of an obstructing stone. I suspect a component of this is prerenal. Would recommend fluid resuscitation. There may additionally be a component of urinary tract infection. She is hemodynamically stable at this time. Please keep her n.p.o. at midnight for possible intervention with stent placement on 07/29/2023. If she starts to decompensate clinically, please call for consideration of sooner intervention. -Elias Knight MD. Date of Consultation July 29, 2023 Assessment & Plan (1) Nephrolithiasis: The patient has been admitted on the hospitalist service. From a urologic perspective we recommend the following: Provide analgesics Provide antiemetics Follow serial labs Avoid nephrotoxic medications as she does have a slight elevation of her creatinine Would recommend providing Flomax for expulsive therapy Would make the patient n.p.o. at the present time At the present time the patient is nontoxic-appearing. The patient is noted to be normotensive with only slight tachycardia with heart rate in the low 90s. Although the patient did deny having any fevers she was noted to be febrile at presentation with a maximum temperature of 38.2. By the time of my evaluation of the patient this had resolved. She does have a slight tachycardia but her heart rate is only in the 90s. She does have a slight leukocytosis but her lactic acid level is normal. I therefore feel conservative treatment is warranted at the present time The patient be reevaluated the morning of 07/29/2023 and a determination will be made if a cystoscopy will be required History of Present Illness Reason for Consultation: Nephrolithiasis History of Present Illness This is a 73-year-old female who presented to the emergency department secondary to left flank pain. Patient notes that the flank pain has been present for several days and has gotten progressively worse to the point where she needed to come to the emergency department. She notes that the pain does radiate to the abdomen somewhat and she has had associated nausea and vomiting. She denies any fevers, shakes, or chills. She notes that she is urinating without difficulty and denies any dysuria or hematuria. The patient notes that she has had kidney stones in the past but feels as though she has been able to pass them on her own and does not recall ever having any urologic procedures related to kidney stones. Since arrival to the hospital she has had labs and imaging which I independent reviewed. Chest x-ray did not show any evidence of pneumonia. Patient did have a CT scan of the abdomen and pelvis which showed the patient had moderate left- sided hydronephrosis secondary to a 5 mm obstructing proximal ureteral kidney stone. She also had a nonobstructing 6 mm renal calculi. Labs included CBC were white blood cell count was slightly elevated at 13.4. Hemoglobin and hematocrit as well as the platelet count were normal. Coagulation studies were normal. Chemistry profile showed sodium and potassium were normal. Her BUN and creatinine were elevated at 37 and 2.3. (Review of records show the patient's baseline creatinine runs approximately 1.8-2.1.). Lactic acid level was noted to be nonelevated. The patient did have a urinalysis which was negative for nitrites. It was also negative for leukocyte Estrace. The patient did have a bio fire respiratory panel sent which was negative for all items tested. At the time of my interview she was resting comfortably in bed and she was in no distress. Concerning past medical history the patient says she does not have much in the way of medical problems but review of medicines and records indicate the patient is treated for diabetes as well as hypertension. Patient also has noted sternal wires on her chest x-ray indicating she has had previous open heart surgery but she could not tell me the exact procedure she had. Allergies Allergy/AdvReac Type Severity Reaction Status Date / Time codeine AdvReac Severe CONFUSION, Verified 06/14/21 22:19 UNCONTROLABLE ACTIONS-PER GMG morphine AdvReac Unknown Verified 07/29/23 00:32 Home Medications Medication Instructions Recorded Confirmed Type amoxicillin 500 mg capsule 2,000 mg PO DIRECTED PRN PRIOR 06/14/21 07/29/23 History TO DENTAL APPOINTMENTS atorvastatin 80 mg tablet 80 mg PO QAM 06/14/21 07/29/23 History felodipine 5 mg tablet,extended 10 mg PO QAM 06/14/21 07/29/23 History release 24 hr fluticasone propionate 50 2 spray intranasal DAILY 06/14/21 07/29/23 History mcg/actuation nasal spray,suspension lisinopril 40 mg tablet 40 mg PO QAM 06/14/21 07/29/23 History metoprolol succinate 100 mg 100 mg PO QAM 06/14/21 07/29/23 History tablet,extended release 24 hr acetaminophen 500 mg tablet 1,000 mg PO TID PRN Pain 07/29/23 07/29/23 History ascorbic acid (vitamin C) 1,000 mg 1 g PO QAM 07/29/23 07/29/23 History tablet (Vitamin C) azelastine 137 mcg (0.1 %) nasal 1 spray intranasal BID 07/29/23 07/29/23 History spray aerosol diclofenac sodium 1 % topical gel 4 g topical TID PRN MODERATE PAIN 07/29/23 07/29/23 History IN FEET docusate sodium 100 mg capsule 100 mg PO HS 07/29/23 07/29/23 History empagliflozin 10 mg tablet 10 mg PO QAM 07/29/23 07/29/23 History (Jardiance) metoprolol succinate 25 mg 25 mg PO QAM 07/29/23 07/29/23 History tablet,extended release 24 hr ondansetron HCl 4 mg tablet 4 mg PO Q6 PRN Nausea And Vomiting 07/29/23 07/29/23 History semaglutide 1 mg/dose (4 mg/3 mL) 1 mg subcut WK 07/29/23 07/29/23 History subcutaneous pen injector (Ozempic) vitamin E (dl, acetate) 180 mg 180 mg PO QAM 07/29/23 07/29/23 History (400 unit) capsule Patient History Social History Smoking Status: Never smoker Preferred Language: Cypriot Feels Safe at Home: Yes Review of Systems Review of Systems: All systems reviewed & are unremarkable except as noted in HPI & below Physical Exam Constitutional: well developed and well nourished; no acute distress Eyes: no conjunctival abnormality ENMT: Ears: no hearing impairment and no external ear abnormality Mouth: no oropharynx abnormality Neck: trachea midline Respiratory: normal respiratory effort; no respiratory distress and no labored breathing Cardiovascular: Rate/Rhythm: regular rate and regular rhythm Gastrointestinal (Abdomen): Patient's abdomen is soft and nondistended. It is nonrigid. There is no rebound tenderness or guarding, but patient did have some slight tenderness with palpation on the left side of her abdomen just to the left of the umbilicus Musculoskeletal: No calf tenderness. Pedal pulses are palpable. Her feet are warm and well- perfused Skin: no rashes Neurologic: moves all extremities Psychiatric: A+Ox3, euthymic affect Genitourinary: CVA tenderness noted with percussion on the left. There is no CVA tenderness with percussion on the right Results & Data Vital Signs (Past 12 Hours) Vital Signs Temp Pulse Pulse Resp BP BP Pulse Ox 07/28/23 22:19 37.3 C 92 H 17 183/96 H 97 07/28/23 22:14 91 H 07/28/23 20:53 38.2 C H 07/28/23 20:48 94 07/28/23 20:37 37.8 C H 91 H 16 192/91 H 95 07/28/23 20:37 37.8 C H 93 H 18 192/91 H 95 O2 Del Method 07/28/23 22:19 Room Air 07/28/23 22:14 07/28/23 20:53 07/28/23 20:48 Room Air 07/28/23 20:37 Room Air 07/28/23 20:37 Room Air PG Care Time/CCT Total # of Minutes Spent Total Time Spent with Patient: Total time spent is greater than 50% in coordination of care (as documented) at patient's floor/unit and/or counseling patient: Coding Level of Care Code 06579 INT INP/OBS CARE 3/75MIN Diagnoses Nephrolithiasis N20.0
[2023-07-29 00:31] LABS: Appearance Urine Clear (Clear); Bacteria Urine Automated None Seen (None Seen); Bilirubin Urine Negative (Negative); Blood Urine 2+ (Negative); Cast Urine Automated 0-2 /lpf (0-2); Color Urine Yellow; Epithelial Cell Urine Auto 0-2 /hpf (0-2); Glucose Urine UA 3+ (Negative); Ketones Urine 1+ (Negative); Leukocyte Esterase Urine Negative (Negative); Nitrite Urine Negative (Negative); Protein Urine 3+ (Negative); Specific Gravity Urine 1.019 (1.000-1.030); Urobilinogen Urine Negative (Negative); WBC Urine Automated 21-50 /hpf (0-5); pH Urine 6.5 (4.5-7.5)
[2023-07-29] MEDS ORDERED: DEXTROSE 50% 50 ML SYRINGE IV PRN (00:44)
[2023-07-29] MEDS ORDERED: GLUCOSE 10 TAB/TUBE PO PRN (00:44)
[2023-07-29] MEDS ORDERED: GLUCAGON FOR INJ 1 MG VIAL SQ PRN (00:44)
[2023-07-29] MEDS ORDERED: GLUCOSE 40% GEL 15 GM TUBE PO PRN (00:44)
[2023-07-29] MEDS ORDERED: CARBOHYDRATES FOR HYPOGLYCEMIA PO PRN (00:44)
[2023-07-29 00:48] LABS: Magnesium 1.9 mg/dl (1.7-2.4)
[2023-07-29] MEDS ORDERED: HYDROmorphone INJ 0.5 MG/0.5 ML SYR IV PRN (00:48)
[2023-07-29] MEDS ORDERED: PROMETHAZINE HCL 6.25 MG in SODIUM CHLORIDE 0.9% 50 ML IV PRN (00:48)
[2023-07-29] MEDS ORDERED: traMADol HCL 50 MG TABLET PO PRN (00:49)
[2023-07-29] MEDS ORDERED: ACETAMINOPHEN 325 MG TAB PO PRN (00:49)
[2023-07-29] MEDS: TAMSULOSIN HCL 0.4 MG CAP PO ONE (01:15)
[2023-07-29] MEDS: METOPROLOL TARTRATE 1 MG/ML VIAL IV STA ×2 (01:15→02:55)
[2023-07-29] MEDS: INSULIN ASPART PER UNIT CHARGE SC SCH ×2 (01:16→12:49)
[2023-07-29] MEDS: CEFEPIME 2,000 MG/20 ML VIAL IV STA (01:16)
[2023-07-29] MEDS: LANTUS PER UNIT CHARGE SQ STA (01:16)
[2023-07-29] MEDS: SODIUM CHLORIDE 0.9% 1,000 ML IV ONE (01:16)
[2023-07-29] MEDS ORDERED: DICLOFENAC SOD 1% GEL 100 GM TUBE EXT PRN (02:27)
[2023-07-29 04:26] LABS: Basophils # (auto) 0.03 K/uL (0.00-0.20); Basophils % (auto) 0.2 %; Hematocrit (blood only) 38.2 % (37.0-47.0); Hemoglobin 12.3 g/dl (12.0-16.0); Immature Granulocytes # (auto) 0.07 K/uL (0.01-0.20); Immature Granulocytes % (auto) 0.5 %; Lymphocytes # (auto) 0.49 K/uL (1.20-3.40); Lymphocytes % (auto) 3.3 %; Mean Corpuscular Hemoglobin 31.5 pg (25.0-34.0); Mean Corpuscular Hgb Conc 32.2 g/dL (32.0-36.0); Mean Corpuscular Volume 97.7 fL (80.0-100.0); Mean Platelet Volume 10.4 fL (9.4-12.4); Monocytes # (auto) 0.89 K/uL (0.11-0.59); Neutrophils # (auto) 13.25 K/uL (1.40-6.50); Platelet Count 155 K/uL (130-400); RDW Coefficient of Variation 12.7 % (11.5-14.5); RDW Standard Deviation 46.1 fL (36.4-46.3); Red Blood Count 3.91 M/uL (4.20-5.40); White Blood Count 14.73 K/ul (4.8-10.8)
[2023-07-29 04:44] LABS: BUN Creatinine Ratio 15.5 (10-20); Calcium 9.5 mg/dl (8.6-10.3); Creatinine Clr Calc Pharmacy 19.5 ml/min; Est GFR (African American) 22.5 ml/min; Est GFR (Non-African American) 19.4 ml/min; Potassium 4.4 mmol/L (3.5-5.1)
[2023-07-29] MEDS: HEPARIN SOD 5,000 UNIT/0.5 ML VIAL SQ SCH (05:26)
[2023-07-29] MEDS ORDERED: MIDAZOLAM HCL 1 MG/ML 2ML VIAL ONE (07:10)
[2023-07-29] MEDS ORDERED: fentaNYL citrate PF 100 MCG/2 ML VIAL ONE (07:10)
[2023-07-29] MEDS ORDERED: LIDOCAINE 2% 2 ML VIAL/AMP(20MG/ML) INFIL ONE (07:11)
[2023-07-29] MEDS ORDERED: ONDANSETRON INJ 2 MG/ML 2 ML VIAL ONE (07:11)
[2023-07-29] MEDS ORDERED: PROPOFOL IV EMULSION 10 MG/ML 20 ML VIAL IV ONE (07:11)
--- NOTE | 2023-07-29 07:46 | Urology Progress Note ---
Date of Service July 29, 2023 Assessment & Plan (1) Ureterolithiasis: Plan: We reviewed her left ureteral stone in the setting of possible urinary tract infection given her fevers. In this situation I would recommend that we proceed with cystoscopy, left retrograde pyelogram and left ureteral stent placement. We discussed risks and benefits of the surgery, specifically risks of bleeding, infection, injury to urinary tract, need for additional procedures, inability to place the stent. She expressed understanding and would like to proceed. Admission and Anticipated Discharge Date Admission Date: July 28, 2023 Subjective Feeling okay this morning, leukocytosis slightly increased Was febrile overnight Has not passed her stone. Urine and blood cultures are pending Currently on broad-spectrum antibiotics with ceftriaxone Physical Exam Physical Exam: Tired appearing, resting in bed, NAD Results & Data Vital Signs (Past 12 Hours) Vital Signs Temp Pulse Pulse Resp BP BP Pulse Ox 07/29/23 07:05 85 15 159/87 H 97 07/29/23 03:18 84 149/80 H 07/29/23 03:00 85 20 149/80 H 94 07/29/23 02:50 90 20 148/97 H 96 07/29/23 02:50 97 07/29/23 02:11 87 174/93 H 07/29/23 02:00 85 17 168/92 H 07/29/23 01:45 86 07/29/23 01:36 86 19 180/95 H 07/29/23 01:15 87 167/86 H 07/29/23 01:03 86 16 167/86 H 07/28/23 22:19 37.3 C 92 H 17 183/96 H 97 07/28/23 22:14 91 H 07/28/23 20:53 38.2 C H 07/28/23 20:48 94 07/28/23 20:37 37.8 C H 91 H 16 192/91 H 95 07/28/23 20:37 37.8 C H 93 H 18 192/91 H 95 O2 Del Method 07/29/23 07:05 Room Air 07/29/23 03:18 07/29/23 03:00 Room Air 07/29/23 02:50 Room Air 07/29/23 02:50 Room Air 07/29/23 02:11 07/29/23 02:00 07/29/23 01:45 07/29/23 01:36 07/29/23 01:15 07/29/23 01:03 07/28/23 22:19 Room Air 07/28/23 22:14 07/28/23 20:53 07/28/23 20:48 Room Air 07/28/23 20:37 Room Air 07/28/23 20:37 Room Air PG Care Time/CCT Total # of Minutes Spent Total Time Spent with Patient: Total time spent is greater than 50% in coordination of care (as documented) at patient's floor/unit and/or counseling patient: Coding Level of Care Code None Diagnoses Ureterolithiasis N20.1
--- NOTE | 2023-07-29 07:50 | Hospitalist Progress Note ---
Date of Service July 29, 2023 Assessment & Plan (1) Sepsis: Plan Pt is a 73yoF with PMhx significant for severe MR status post surgery, bifascicular block as per records, hypertension, hyperlipidemia, ANG currently not on CPAP, DMII on oral medications, CKD (baseline creatinine 2s), hyperparathyroidism as per records, dementia, urolithiasis, malignant melanoma status post surgery presenting with N/V and left flank pain. Sepsis, POA Obstructive Nephrolithiasis Hydronephrosis, Left Pt presenting with N/V and left flank pain Pt febrile, tachycardic with leukocytosis, infectious source likely urinary UA with urine Cx pending Blood Cx x2 sets pending CT abd/pelvis noting "Moderate left hydronephrosis secondary to a 5 x 3 9 mm proximal ureteral calculus" Urology consulted, appreciate recs -s/p cystoscopy and stent placement on 07/28 -Flomax Continue with IV Rocephin started on admission Continue to monitor Hypertensive urgency secondary to above Given IV Lopressor, better control Continue to monitor Severe MR status post surgery Hyperlipidemia on statin Rx ANG currently not on CPAP DMII on oral medications patient markedly hyperglycemic at the ER Hgba1c of 7.8 Basal bolus insulin Continue to monitor FREDERIC on CKD Creatinine baseline of ~1.8 Cr in 2s on admission Hold nephrotoxic meds Gentle hydration Continue to monitor 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 Frequent reorientation, avoid sedating medication Continue to monitor Malignant melanoma status post surgery DVT prophylaxis: Heparin subcu Admission and Anticipated Discharge Date Admission Date: July 28, 2023 Subjective Pt seen after her procedure in 287 States that her N/V had stopped for the time being, flank pain was resolved. Denied acute concerns Review of Systems Review of Systems: All systems reviewed & are unremarkable except as noted in Subjective Physical Exam Physical Exam: General: Alert, oriented. No acute distress Psych: Appropriate mood and affect Neuro: No gross deficits while laying in bed HEENT: NC/AT CV: RRR Resp: Breath sounds clear bilaterally, no increased effort of breathing Abdomen: Soft, nontender, nondistended Extremities: No edema in lower extremities bilaterally. Results & Data Results & Data Vital Signs (Past 12 Hours) Vital Signs Temp Pulse Pulse Resp BP BP Pulse Ox 07/29/23 07:05 85 15 159/87 H 97 07/29/23 03:18 84 149/80 H 07/29/23 03:00 85 20 149/80 H 94 07/29/23 02:50 90 20 148/97 H 96 07/29/23 02:50 97 07/29/23 02:11 87 174/93 H 07/29/23 02:00 85 17 168/92 H 07/29/23 01:45 86 07/29/23 01:36 86 19 180/95 H 07/29/23 01:15 87 167/86 H 07/29/23 01:03 86 16 167/86 H 07/28/23 22:19 37.3 C 92 H 17 183/96 H 97 07/28/23 22:14 91 H 07/28/23 20:53 38.2 C H 07/28/23 20:48 94 07/28/23 20:37 37.8 C H 91 H 16 192/91 H 95 07/28/23 20:37 37.8 C H 93 H 18 192/91 H 95 O2 Del Method 07/29/23 07:05 Room Air 07/29/23 03:18 07/29/23 03:00 Room Air 07/29/23 02:50 Room Air 07/29/23 02:50 Room Air 07/29/23 02:11 07/29/23 02:00 07/29/23 01:45 07/29/23 01:36 07/29/23 01:15 07/29/23 01:03 07/28/23 22:19 Room Air 07/28/23 22:14 07/28/23 20:53 07/28/23 20:48 Room Air 07/28/23 20:37 Room Air 07/28/23 20:37 Room Air Diagnostic Findings Abdomen/Pelvis CT 07/28/23 21:09 Exam(s): CT ABDOMEN + PELVIS Without Contrast EXAM: CT Abdomen and Pelvis Without Intravenous Contrast CLINICAL HISTORY: Back Pain and fever TECHNIQUE: Axial computed tomography images of the abdomen and pelvis without intravenous contrast. CTDI is 23.75 mGy and DLP is 1165.62 mGy-cm. Automated exposure control was utilized for the study. A dose lowering technique was utilized adhering to the principles of ALARA. COMPARISON: CT abdomen and pelvis 06/14/2021 FINDINGS: Lung bases: Unremarkable. No mass. No consolidation. ABDOMEN: Liver: Unremarkable. Gallbladder and bile ducts: Cholecystectomy. No ductal dilation. Pancreas: Unremarkable. No ductal dilation. Spleen: Unremarkable. No splenomegaly. Adrenals: Unremarkable. No mass. Kidneys and ureters: Moderate left hydronephrosis secondary to a 5 x 3 9 mm proximal ureteral calculus. Additional nonobstructing renal calculi measure up to 6 mm. Simple appearing bilateral renal cysts are present, no follow up is needed. The kidneys are otherwise unremarkable. No hydronephrosis. No right hydronephrosis. Stomach and bowel: Diverticulosis. No obstruction. No mucosal thickening. PELVIS: Appendix: Normal appendix. Bladder: Unremarkable. No stones. Reproductive: Unremarkable as visualized. ABDOMEN and PELVIS: Intraperitoneal space: Unremarkable. No free air. No significant fluid collection. Bones/joints: There are degenerative changes of the spine. No acute fracture. No dislocation. Soft tissues: Unremarkable. Vasculature: Mild atherosclerosis. No abdominal aortic aneurysm. Lymph nodes: Unremarkable. No enlarged lymph nodes. IMPRESSION: 1. Moderate left hydronephrosis secondary to a 5 x 3 9 mm proximal ureteral calculus. 2. Additional nonobstructing renal calculi measure up to 6 mm. 3. Diverticulosis. Electronically signed by: Emilie Carcamo MD 07/28/23 23:09 PM Chest X-Ray 07/28/23 23:58 XR chest 1V portable HISTORY: 73 years-old Female renal failure acute renal failure COMPARISON: 05/24/2023 TECHNIQUE: AP view of the chest FINDINGS: Cardiac silhouette is enlarged. Median sternotomy with cardiac valvular prosthesis. No pneumothorax, pleural effusion or airspace consolidation. Bones appear grossly intact. IMPRESSION: No acute process. ACT 112: Negative or not required by law. The above report was generated using voice recognition software. It may contain grammatical, syntax or spelling errors. Electronically signed by: Chris Khan M.D. 07/29/2023 7:58 AM
--- NOTE | 2023-07-29 07:59 | XRay Report ---
XR chest 1V portable HISTORY: 73 years-old Female renal failure acute renal failure COMPARISON: 05/24/2023 TECHNIQUE: AP view of the chest FINDINGS: Cardiac silhouette is enlarged. Median sternotomy with cardiac valvular prosthesis. No pneumothorax, pleural effusion or airspace consolidation. Bones appear grossly intact. IMPRESSION: No acute process. ACT 112: Negative or not required by law. The above report was generated using voice recognition software. It may contain grammatical, syntax o r spelling errors. Electronically signed by: Chris Khan M.D. 07/29/2023 7:58 AM
--- NOTE | 2023-07-29 07:59 | Anesthesiology Consultation ---
Date of Service July 29, 2023 Assessment & Plan Chart Review Chart Review: Acceptable Risk for Surgery and Patient NOT seen in Pre Admission Testing ASA ASA2 Proposed Anesthesia Anesthesia Type: General Risk / Benefits Reviewed With: PT / POA / Parent / Guardian, Accepts Plan and Informed Consent Obtained History Surgery Operation Date: 07/29/23 09:00 Proposed Procedures p Ureteral Stent Insertion/Removal(Left) - Elias Knight MD Height/Weight Height: 5 ft 2 in Weight: 73.6 kg Allergies Allergy/AdvReac Type Severity Reaction Status Date / Time codeine AdvReac Severe CONFUSION, Verified 06/14/21 22:19 UNCONTROLABLE ACTIONS-PER [facility] morphine AdvReac Unknown Verified 07/29/23 00:32 Medications Home Medications Medication Instructions Recorded Confirmed Last Taken amoxicillin 500 mg capsule 2,000 mg PO DIRECTED PRN PRIOR 06/14/21 07/29/23 Unknown TO DENTAL APPOINTMENTS atorvastatin 80 mg tablet 80 mg PO QA 06/14/21 07/29/23 06/14/21 felodipine 5 mg tablet,extended 10 mg PO QAM 06/14/21 07/29/23 06/14/21 release 24 hr fluticasone propionate 50 2 spray intranasal DAILY 06/14/21 07/29/23 06/14/21 mcg/actuation nasal spray,suspension lisinopril 40 mg tablet 40 mg PO QAM 06/14/21 07/29/23 06/14/21 metoprolol succinate 100 mg 100 mg PO QAM 06/14/21 07/29/23 06/14/21 tablet,extended release 24 hr acetaminophen 500 mg tablet 1,000 mg PO TID PRN Pain 07/29/23 07/29/23 Unknown ascorbic acid (vitamin C) 1,000 mg 1 g PO QAM 07/29/23 07/29/23 Unknown tablet (Vitamin C) azelastine 137 mcg (0.1 %) nasal 1 spray intranasal BID 07/29/23 07/29/23 Unknown spray aerosol diclofenac sodium 1 % topical gel 4 g topical TID PRN MODERATE PAIN 07/29/23 07/29/23 Unknown IN FEET docusate sodium 100 mg capsule 100 mg PO HS 07/29/23 07/29/23 Unknown empagliflozin 10 mg tablet 10 mg PO QAM 07/29/23 07/29/23 Unknown (Jardiance) metoprolol succinate 25 mg 25 mg PO QAM 07/29/23 07/29/23 Unknown tablet,extended release 24 hr ondansetron HCl 4 mg tablet 4 mg PO Q6 PRN Nausea And Vomiting 07/29/23 07/29/23 Unknown semaglutide 1 mg/dose (4 mg/3 mL) 1 mg subcut WK 07/29/23 07/29/23 Unknown subcutaneous pen injector (Ozempic) vitamin E (dl, acetate) 180 mg 180 mg PO QAM 07/29/23 07/29/23 Unknown (400 unit) capsule Active Medications Generic Name Dose Route Start Last Admin Trade Name Freq PRN Reason Stop Dose Admin Heparin Sodium (Porcine) 5,000 units 07/29/23 06:00 07/29/23 05:26 Heparin Sod 5,000 Unit/0.5 Ml Vial SQ 08/28/23 05:59 5,000 units Q8 JIGAR Administration Sodium Chloride 1,000 mls @ 80 mls/hr 07/29/23 00:39 07/29/23 01:16 Nss IV 07/29/23 13:08 80 mls/hr .[id number] ONE Administration Insulin Aspart 0 units 07/29/23 00:45 07/29/23 07:31 Insulin Aspart Per Unit Charge SC 08/28/23 00:44 2 units Q6 JIGAR Administration Exercise / Class Metabolic Activity II 4-5 Yardwork/Stairs/Walk up hill Past Anesthesia History No Hx of Anesthesia Complications and No Family Hx of Anesthesia Complications History of PONV No Hx of PONV and No Hx of Motion Sickness Social History Smoking Status: Never smoker Hx Alcohol Use: No Hx Substance Use: No substance use type: does not use Review of Systems denies fever/cough/ colds/ chest pain/ SOB/ ANG denies ANG Physical Exam Vital Signs Last Vital Signs Temp 37.3 C 07/28/23 22:19 Pulse 85 07/29/23 07:05 Resp 15 07/29/23 07:05 BP 159/87 H 07/29/23 07:05 Pulse Ox 97 07/29/23 07:05 O2 Del Method Room Air 07/29/23 07:05 ENMT Mouth: no TMJ abnormality and no dentition abnormality Thyromental Distance: > or= 3.5 Finger Breadths Mallampati Class: II Neck neck extension not limited Respiratory normal respiratory effort; no respiratory distress Auscultation: lungs clear to auscultation bilaterally Cardiovascular Rate/Rhythm: regular rate and regular rhythm Neurologic moves all extremities Psychiatric Orientation: alert and oriented x 3 Testing Laboratory Results 07/29/23 03:53 07/29/23 03:53 PT 10.7 Seconds (9.0-12.0) 07/28/23 20:45 INR 1.0 (0.9-1.1) 07/28/23 20:45 Urine Color Yellow 07/28/23 23:54 Urine Appearance Clear (Clear) 07/28/23 23:54 Urine pH 6.5 (4.5-7.5) 07/28/23 23:54 Ur Specific [place] 1.019 (1.000-1.030) 07/28/23 23:54 Urine Protein 3+ (Negative) H 07/28/23 23:54 Urine Glucose (UA) 3+ (Negative) H 07/28/23 23:54 Urine Ketones 1+ (Negative) H 07/28/23 23:54 Urine Nitrite Negative (Negative) 07/28/23 23:54 Ur Leukocyte Esterase Negative (Negative) 07/28/23 23:54 Urine WBC (Auto) 21-50 /hpf (0-5) H 07/28/23 23:54 Urine RBC (Auto) 11-20 /hpf (0-2) H 07/28/23 23:54 U Hyaline Cast (Auto) 0-2 /lpf (0-2) 07/28/23 23:54 U Epithel Cells (Auto) 0-2 /hpf (0-2) 07/28/23 23:54 Urine Bacteria (Auto) None Seen (None Seen) 07/28/23 23:54 07/29/23 07/29/23 07:18 01:05 POC Glucose 166 H 302 H*
[2023-07-29 08:03] LABS: Estimated Average Glucose 177 mg/dl; Hemoglobin A1C 7.8 % (4.5-5.6)
[2023-07-29] MEDS ORDERED: SUCCINYLCHOLINE CHLORIDE 20 MG/ML 10 ML VIAL IV ONE (08:07)
[2023-07-29] MEDS ORDERED: ePHEDrine sulfate 50 MG/ML AMP IV PRN (08:12)
[2023-07-29] MEDS ORDERED: HYDROmorphone INJ 1 MG/ML SYRINGE IV PRN (08:12)
[2023-07-29] MEDS ORDERED: fentaNYL citrate PF 100 MCG/2 ML VIAL IV PRN (08:12)
[2023-07-29] MEDS ORDERED: ATROPINE SULFATE 0.1 MG/ML 10ML SYR IV PRN (08:12)
[2023-07-29] MEDS ORDERED: ONDANSETRON INJ 2 MG/ML 2 ML VIAL IV PRN (08:12)
[2023-07-29] MEDS: DIATRIZOATE MEGLUMINE 30% 100ML VIAL INSTIL ONE (08:30)
--- NOTE | 2023-07-29 08:43 | Operative Report ---
PG Post Operative Report Pre & Post Diagnosis Operation Date: 07/29/23 09:00 Preoperative diagnosis: Left ureteral stone, possible UTI Postoperative diagnosis: Left ureteral stone, possible UTI I identified the patient and participated in the time-out.: Yes Procedure Operation Date: 07/29/23 09:00 Cystoscopy, left retrograde pyelogram, left ureteral stent placement Surgeon Elias Knight MD Director Medical Writing None Estimated Blood Loss 0 Findings Consistent with Post-Op Diagnosis Specimens None Drains 6 Vincentian by 24 cm double-J ureteral stent in the left ureter Complications none Disposition Accompanied Patient To Recovery: Yes Disposition: Recovery Room Indications This is a 73-year-old female who presented to the emergency department with fevers and was found to have a left ureteral stone. She is being brought to the OR for left ureteral stent placement to maximally decompress her left kidney. Description of Procedure The patient was identified in the holding area and informed consent was confirmed. She was marked on the left side, then was taken to the operating room where anesthesia was initiated. She was placed in the dorsal lithotomy position with all pressure points appropriately padded. She was prepped and draped in the usual sterile fashion and a preoperative timeout was performed. A well-lubricated cystoscope was inserted per urethra and panendoscopy was p erformed. The urethra was normal in appearance. The bladder was of normal size with ureteral orifices in orthotopic position. The left ureteral orifice was identified and cannulated with a 5 Vincentian open- ended catheter. A retrograde pyelogram was performed demonstrating the distal ureter was normal in course and caliber. There was a transition point, likely the position where the stone was lodged. Above this, there was hydronephrosis. A 0.038" ZIPwire was advanced to the level of the kidney under fluoroscopic guidance. Over the wire, a 6 Vincentian x 24 centimeter double-J ureteral stent was advanced. When the wire was removed, the proximal curl was visualized in the kidney with x-ray, and the distal curl visualized in the bladder with the cystoscope. At this point the bladder was drained and all instrumentation was removed. The patient was then awakened from anesthesia and was brought to the PACU in stable condition. I attest to the content of the Intraoperative Record and any orders documented therein. Any exceptions are noted below.
--- NOTE | 2023-07-29 09:18 | Fluoroscopy Report ---
FL retrograde includes kub CLINICAL HISTORY: LT CYSTO, RETRO, STENTleft-sided cystourethrogram COMPARISON STUDY: CT 07/28/2023 FLUOROSCOPY TIME: 5.5 seconds FLUOROSCOPY IMAGES: 1 EXPOSURE DOSE: 0.70 mGy FINDINGS: A left ureteral stent proximal portion appears to be in satisfactory positioning. The dista l portion of the stent was not imaged. IMPRESSION: Fluoroscopic assistance as above. ACT 112: Negative or not required by law. Electronically signed by: Chris Khan M.D. 07/29/2023 9:16 AM
--- NOTE | 2023-07-29 09:33 | Anesthesiology Progress Note ---
Date of Service July 29, 2023 Anesthesia Post Procedure Vital Signs Vital Signs: Temp Pulse Pulse Resp BP BP Pulse Ox 07/29/23 09:30 88 20 117/79 97 07/29/23 09:25 91 H 20 137/84 96 07/29/23 09:15 93 H 21 126/76 95 07/29/23 09:05 90 19 135/65 100 07/29/23 09:00 92 H 20 162/88 H 97 07/29/23 08:54 36.6 C 95 H 22 138/87 97 07/29/23 07:05 85 15 159/87 H 97 07/29/23 03:18 84 149/80 H 07/29/23 03:00 85 20 149/80 H 94 07/29/23 02:50 90 20 148/97 H 96 07/29/23 02:50 97 07/29/23 02:11 87 174/93 H 07/29/23 02:00 85 17 168/92 H 07/29/23 01:45 86 07/29/23 01:36 86 19 180/95 H 07/29/23 01:15 87 167/86 H 07/29/23 01:03 86 16 167/86 H 07/28/23 22:19 37.3 C 92 H 17 183/96 H 97 07/28/23 22:14 91 H 07/28/23 20:53 38.2 C H 07/28/23 20:48 94 07/28/23 20:37 37.8 C H 91 H 16 192/91 H 95 07/28/23 20:37 37.8 C H 93 H 18 192/91 H 95 O2 Del Method O2 Flow Rate 07/29/23 09:30 Room Air 0 07/29/23 09:25 Room Air 0 07/29/23 09:15 Room Air 0 07/29/23 09:05 Oxymask 4 07/29/23 09:00 Oxymask 8 07/29/23 08:54 Oxymask 12 07/29/23 07:05 Room Air 07/29/23 03:18 07/29/23 03:00 Room Air 07/29/23 02:50 Room Air 07/29/23 02:50 Room Air 07/29/23 02:11 07/29/23 02:00 07/29/23 01:45 07/29/23 01:36 07/29/23 01:15 07/29/23 01:03 07/28/23 22:19 Room Air 07/28/23 22:14 07/28/23 20:53 07/28/23 20:48 Room Air 07/28/23 20:37 Room Air 07/28/23 20:37 Room Air Pain Intensity Left Lower Flank: Pain Intensity: 10 Transfer of Care Handoff Completed per policy Notes Mental Status: alert / awake / arousable and participated in evaluation Patient Amnestic to Procedure: Yes Nausea / Vomiting: adequately controlled Pain: adequately controlled Airway Patency, RR, SpO2: stable & adequate BP & HR: stable & adequate Hydration State: stable & adequate Anesthetic Complications: no major complications apparent and Pt Satisfied with anesthetic care
[2023-07-29] MEDS: cefTRIAXone SODIUM 2,000 MG/50 ML BAG IV SCH (10:10)
[2023-07-29] MEDS: METOPROLOL SUCC 25MG EXT REL TAB PO SCH (10:17)
[2023-07-29] MEDS: FELODIPINE 5 MG TABCR PO SCH (10:20)
[2023-07-29] MEDS: ATORVASTATIN 40 MG TAB PO SCH (10:21)
[2023-07-29] MEDS: AZELASTINE HCL 0.1% NASAL 200 SPRAYS/27,400 MCG BTL SCH (10:22)
[2023-07-29] MEDS: FLUTICASONE PROPIONATE NA SPR 16 GM BTL SCH (10:22)
[2023-07-29] MEDS ORDERED: SODIUM CHLORIDE 0.9% 1,000 ML IV SCH (13:00)
--- NOTE | 2023-07-29 14:55 | Electrocardiogram Report ---
Test Reason : Blood Pressure : / mmHG Vent. Rate : 091 BPM Atrial Rate : 091 BPM P-R Int : 208 ms QRS Dur : 144 ms QT Int : 408 ms P-R-T Axes : 087 -68 077 degrees QTc Int : 501 ms Normal sinus rhythm Right bundle branch block Left anterior fascicular block Bifascicular block Left ventricular hypertrophy with repolarization abnormality ( R in aVL ) Abnormal ECG When compared with ECG of 24-MAY-2023 10:43, Nonspecific T wave abnormality no longer evident in Inferior leads Confirmed by Seven Berger ([id number]) on 07/29/2023 2:55:19 PM Referred By: REFERRED SELF Confirmed By:Seven Berger
[2023-07-29] MEDS: LACTATED RINGER'S 1,000 ML IV ONE (20:58)
[2023-07-29] MEDS: DOCUSATE SODIUM 100 MG CAP PO SCH (21:00)
[2023-07-30 06:43] LABS: Basophils # (auto) 0.02 K/uL (0.00-0.20); Basophils % (auto) 0.2 %; Eosinophils # (auto) 0.04 K/uL (0.00-0.50); Eosinophils % (auto) 0.4 %; Hematocrit (blood only) 34.7 % (37.0-47.0); Hemoglobin 11.1 g/dl (12.0-16.0); Immature Granulocytes # (auto) 0.03 K/uL (0.01-0.20); Immature Granulocytes % (auto) 0.3 %; Lymphocytes # (auto) 0.79 K/uL (1.20-3.40); Lymphocytes % (auto) 7.7 %; Mean Corpuscular Hemoglobin 31.3 pg (25.0-34.0); Mean Corpuscular Volume 97.7 fL (80.0-100.0); Mean Platelet Volume 10.4 fL (9.4-12.4); Monocytes # (auto) 0.67 K/uL (0.11-0.59); Monocytes % (auto) 6.5 %; Neutrophils # (auto) 8.76 K/uL (1.40-6.50); Neutrophils % (auto) 84.9 %; Platelet Count 162 K/uL (130-400); RDW Coefficient of Variation 12.7 % (11.5-14.5); RDW Standard Deviation 45.8 fL (36.4-46.3); Red Blood Count 3.55 M/uL (4.20-5.40); White Blood Count 10.31 K/ul (4.8-10.8)
[2023-07-30 07:17] LABS: BUN Creatinine Ratio 15.1 (10-20); Calcium 9.7 mg/dl (8.6-10.3); Creatinine Clr Calc Pharmacy 20.5 ml/min; Est GFR (African American) 24.1 ml/min; Est GFR (Non-African American) 20.8 ml/min; Magnesium 1.8 mg/dl (1.7-2.4); Phosphorus 3.2 mg/dl (2.5-4.9); Potassium 4.1 mmol/L (3.5-5.1)
[2023-07-30] MEDS: TAMSULOSIN HCL 0.4 MG CAP PO SCH (07:42)
[2023-07-30] MEDS: LANTUS PER UNIT CHARGE SQ SCH (08:15)
--- NOTE | 2023-07-30 08:34 | Urology Progress Note ---
Date of Service July 30, 2023 Assessment & Plan (1) Hydronephrosis due to obstruction of ureter: (2) Sepsis: Plan: - Pt POD#1 s/p cystoscopy and left ureteral stent placement - Subjectively doing well - Afebrile, lab work reviewed - creatinine 2.25, WBC 10.31 - Tolerating left ureteral stent with minimal bother - Blood cultures showing no growth x 24 hours - Urine cultures pending - Recommend continue broad-spectrum antibiotics and narrow per sensitivity data when available - Okay to d/c from perspective when medically stable - Recommend d/c with course of PO antibiotics, Tamsulosin, prn Pyridium and prn pain medication for stent management - Expected clinical course reviewed, all questions answered - Will arrange outpatient follow-up with our service to discuss definitive stone treatment - will sign off, please contact our service with any additional questions or concerns Admission and Anticipated Discharge Date Admission Date: July 28, 2023 Subjective Patient seen and examined at bedside this morning She is awake and resting in bed Subjectively feeling well No pain at this time Denies nausea, vomiting, fever or chills Review of Systems Constitutional: as per Subjective / HPI Genitourinary: as per Subjective / HPI Physical Exam Constitutional: well developed and well nourished; no acute distress Respiratory: normal respiratory effort; no respiratory distress and no labored breathing Gastrointestinal (Abdomen): Inspection/Auscultation: abdomen normal to inspection Musculoskeletal: Head/Neck/Chest: normocephalic Neurologic: moves all extremities and awake Psychiatric: Orientation: alert and oriented x 3 Results & Data Vital Signs (Past 12 Hours) Vital Signs Temp Pulse Pulse Pulse Resp BP Pulse Ox 07/30/23 07:31 36.8 C 86 18 129/74 97 07/30/23 07:02 86 07/30/23 03:07 37.2 C 85 18 126/74 96 07/29/23 23:18 36.7 C 81 16 116/72 96 O2 Del Method 07/30/23 07:31 Room Air 07/30/23 07:02 07/30/23 03:07 Room Air 07/29/23 23:18 Room Air PG Care Time/CCT Total # of Minutes Spent Total Time Spent with Patient: Total time spent is greater than 50% in coordination of care (as documented) at patient's floor/unit and/or counseling patient: Coding Level of Care Code 43380 SUB INP/OBS CARE Diagnoses Hydronephrosis due to obstruction of ureter N13.1 Sepsis A41.9 Sepsis acute organ dysfunction status: unspecified Sepsis type: sepsis due to unspecified organism (2) Sepsis Sepsis acute organ dysfunction status: unspecified Sepsis type: sepsis due to unspecified organism Qualified Code(s): A41.9 - Sepsis, unspecified organism
--- NOTE | 2023-07-30 12:17 | Hospitalist Progress Note ---
Date of Service July 30, 2023 Assessment & Plan (1) Sepsis: Plan Pt is a 73yoF with PMhx significant for severe MR status post surgery, bifascicular block as per records, hypertension, hyperlipidemia, ANG currently not on CPAP, DMII on oral medications, CKD (baseline creatinine 2s), hyperparathyroidism as per records, dementia, urolithiasis, malignant melanoma status post surgery presenting with N/V and left flank pain. Sepsis, POA Obstructive Nephrolithiasis Hydronephrosis, Left Pt presenting with N/V and left flank pain Pt febrile, tachycardic with leukocytosis, infectious source likely urinary UA with urine Cx NGTD Blood Cx x2 sets NGTD CT abd/pelvis noting "Moderate left hydronephrosis secondary to a 5 x 3 9 mm proximal ureteral calculus" Urology consulted, appreciate recs -s/p cystoscopy and stent placement on 07/28 -Flomax Continue with IV Rocephin started on admission Continue to monitor Hypertensive urgency secondary to above Given IV Lopressor, better control Continue to monitor Severe MR status post surgery Hyperlipidemia on statin Rx ANG currently not on CPAP DMII on oral medications patient markedly hyperglycemic at the ER Hgba1c of 7.8 Basal bolus insulin Continue to monitor FREDERIC on CKD Creatinine baseline of ~1.8 Cr in 2s on admission Hold nephrotoxic meds Gentle hydration Continue to monitor 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 Frequent reorientation, avoid sedating medication Continue to monitor Malignant melanoma status post surgery DVT prophylaxis: Heparin subcu Dispo: PT recommending return to [facility] Admission and Anticipated Discharge Date Admission Date: July 28, 2023 Subjective pt was seen sitting in chair at bedside. Denied acute concerns. Review of Systems Review of Systems: All systems reviewed & are unremarkable except as noted in Subjective Physical Exam Physical Exam: General: Alert, oriented. No acute distress Psych: Appropriate mood and affect Neuro: No gross deficits HEENT: NC/AT CV: RRR Resp: Breath sounds clear bilaterally, no increased effort of breathing Abdomen: Soft, nontender, nondistended Extremities: No edema in lower extremities bilaterally. Results & Data Results & Data Vital Signs (Past 12 Hours) Vital Signs Temp Pulse Pulse Pulse Resp BP Pulse Ox 07/30/23 11:13 36.8 C 89 19 118/79 96 07/30/23 07:31 36.8 C 86 18 129/74 97 07/30/23 07:02 86 07/30/23 03:07 37.2 C 85 18 126/74 96 O2 Del Method 07/30/23 11:13 Room Air 07/30/23 07:31 Room Air 07/30/23 07:02 07/30/23 03:07 Room Air
[2023-07-31 01:16] LABS: A calco-baum cmplx NotReported Not Detected (NotDetected); Bact fragilis Not Reported Not Detected (NotDetected); Blood Culture Id Panel PCR Panel Negative (NotDetected); C auris Not Reported Not Detected (NotDetected); Calbicans Not Reported Not Detected (NotDetected); Candida glabrata Not Reported Not Detected (NotDetected); Candida krusei Not Reported Not Detected (NotDetected); Cneoformans/gatti Not Reported Not Detected (NotDetected); Cparapsilosis Not Reported Not Detected (NotDetected); E cloacae compx Not Reported Not Detected (NotDetected); Efaecalis Not Reported Not Detected (NotDetected); Efaecium Not Reported Not Detected (NotDetected); Enterobacterales Not Reported Not Detected (NotDetected); Escherichia coli Not Reported Not Detected (NotDetected); H influenzae Not Reported Not Detected (NotDetected); K aerogenes Not Reported Not Detected (NotDetected); Koxytoca Not Reported Not Detected (NotDetected); Kpneumoniae grp Not Reported Not Detected (NotDetected); Lmonocyt Not Reported Not Detected (NotDetected); N meningitidis Not Reported Not Detected (NotDetected); P aeruginosa Not Reported Not Detected (NotDetected); Proteus spp Not Reported Not Detected (NotDetected); Salmonella spp Not Reported Not Detected (NotDetected); Smarcescens Not Reported Not Detected (NotDetected); Staph lugdunensis Not Reported Not Detected (NotDetected); Staph spp. Not Reported Not Detected (NotDetected); Staphaureus Not Reported Not Detected (NotDetected); Staphepi Not Reported Not Detected (NotDetected); Stenmaltophilia Not Reported Not Detected (NotDetected); Strep agal(GrpB) Not Reported Not Detected (NotDetected); Strep pneum Not Reported Not Detected (NotDetected); Strep pyog (GrpA) Not Reported Not Detected (NotDetected); Strep spp Not Reported Not Detected (NotDetected)
[2023-07-31 06:22] LABS: Basophils # (auto) 0.02 K/uL (0.00-0.20); Basophils % (auto) 0.3 %; Eosinophils # (auto) 0.07 K/uL (0.00-0.50); Hemoglobin 11.7 g/dl (12.0-16.0); Immature Granulocytes # (auto) 0.03 K/uL (0.01-0.20); Immature Granulocytes % (auto) 0.4 %; Lymphocytes # (auto) 0.89 K/uL (1.20-3.40); Lymphocytes % (auto) 13.1 %; Mean Corpuscular Hemoglobin 31.5 pg (25.0-34.0); Mean Corpuscular Hgb Conc 32.5 g/dL (32.0-36.0); Mean Corpuscular Volume 96.8 fL (80.0-100.0); Monocytes # (auto) 0.52 K/uL (0.11-0.59); Monocytes % (auto) 7.6 %; Neutrophils # (auto) 5.28 K/uL (1.40-6.50); Neutrophils % (auto) 77.6 %; Platelet Count 189 K/uL (130-400); RDW Coefficient of Variation 12.8 % (11.5-14.5); RDW Standard Deviation 46.1 fL (36.4-46.3); Red Blood Count 3.72 M/uL (4.20-5.40); White Blood Count 6.81 K/ul (4.8-10.8)
[2023-07-31 06:27] LABS: BUN Creatinine Ratio 18.6 (10-20); Calcium 9.4 mg/dl (8.6-10.3); Creatinine Clr Calc Pharmacy 21.9 ml/min; Est GFR (African American) 26.2 ml/min; Est GFR (Non-African American) 22.6 ml/min; Magnesium 1.8 mg/dl (1.7-2.4); Phosphorus 3.3 mg/dl (2.5-4.9); Potassium 4.1 mmol/L (3.5-5.1)
--- NOTE | 2023-07-31 11:00 | Discharge Summary ---
Discharge Summary Date of Service July 31, 2023 Principal Dx & Hospital Course #1 = Principal Diagnosis (1) Sepsis: Plan Pt is a 73yoF with PMhx significant for severe MR status post surgery, bifascicular block as per records, hypertension, hyperlipidemia, ANG currently not on CPAP, DMII on oral medications, CKD (baseline creatinine 2s), hyperparathyroidism as per records, dementia, urolithiasis, malignant melanoma status post surgery presenting with N/V and left flank pain. Sepsis, POA Obstructive Nephrolithiasis Hydronephrosis, Left Pt presenting with N/V and left flank pain Pt febrile, tachycardic with leukocytosis, infectious source likely urinary UA with urine Cx NGTD Blood Cx x2 sets obtained. One bottle growing gram positive bacilli at time of discharge, likely a contaminant. Pt adamant she would like to be discharged. Repeat blood Cultures obtained and results to be communicated to PCP on discharge pending further sensitivities and growth. Pt and nephew present in the room agreeable to that plan. CT abd/pelvis noting "Moderate left hydronephrosis secondary to a 5 x 3. 9 mm proximal ureteral calculus" Urology consulted, appreciate recs -s/p cystoscopy and stent placement on 07/28 -Flomax -PRN pyridium -follow up with Urology after discharge Treated with IV Rocephin for 2 days, pt refused on day of discharge. 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 Frequent reorientation, avoid sedating medication Continue to monitor Malignant melanoma status post surgery Notes For Next Care Provider Please ensure Urology followup Please ensure followup of repeat blood cultures, likely a contaminant in 1 bottle. Pt adamant she would like to be discharged. Repeat blood Cultures obtained and results to be communicated to PCP on discharge pending further sensitivities and growth. Pt and nephew present in the room agreeable to that plan. Consider outpatient Infectious Disease followup as needed based on repeat blood culture results. Medication Changes From Visit cefdinir 300mg BID x 7 days Flomax 0.4mg daily PRN pyridium Admission HPI Per Admitting Provider History obtained from patient, family, and records. Patient is a fair historian. Medical history significant for severe MR status post surgery, bifascicular block as per records, hypertension, hyperlipidemia, ANG currently not on CPAP, DM2 on oral medications, CRI (baseline creatinine 2s), hyperparathyroidism as per records, dementia, urolithiasis, malignant melanoma status post surgery. 1 day history of achy left flank pain associated with nausea, emesis. No hematuria as per patient. Not as bad as prior kidney stones as per patient. No headache, no chest pain, no SOB. SBP 190s upon arrival at the ER. IV cefepime administered at the ER. Medical History as above Surgical History : Cholecystectomy, mitral valve repair, right lower leg melanoma excision, cataract surgeries Family History : DM, TIA, thyroid disease Personal/Social history : Non-smoker, no EtOH intake, retired from factory work, personal [facility] resident Admission Exam Per Admitting Provider GENERAL: Demented, oriented to place,, pleasant, no respiratory distress SKIN: Normal color, warm HEENT: [place] palpebral conjunctivae, no ptosis, dry buccal mucosa NECK : Supple, no tenderness CHEST : CTA, no tenderness HEART : RRR, no obvious murmurs ABDOMEN: Some distention, nontender BACK : Left flank tenderness EXTREMITIES : No LE swelling/tenderness, no other conspicuous deformities noted NEUROLOGIC : Demented, no facial asymmetry, no other gross focality Discharge Exam General: Alert, oriented. No acute distress Psych: Appropriate mood and affect Neuro: No gross deficits HEENT: NC/AT CV: RRR Resp: Breath sounds clear bilaterally, no increased effort of breathing Abdomen: Soft, nontender, nondistended Extremities: No edema in lower extremities bilaterally. Updated Medication List Medication Instructions Recorded Confirmed Type amoxicillin 500 mg capsule 2,000 mg PO DIRECTED PRN PRIOR 06/14/21 07/29/23 History TO DENTAL APPOINTMENTS atorvastatin 80 mg tablet 80 mg PO QAM 06/14/21 07/29/23 History felodipine 5 mg tablet,extended 10 mg PO QAM 06/14/21 07/29/23 History release 24 hr fluticasone propionate 50 2 spray intranasal DAILY 06/14/21 07/29/23 History mcg/actuation nasal spray,suspension lisinopril 40 mg tablet 40 mg PO QAM 06/14/21 07/29/23 History metoprolol succinate 100 mg 100 mg PO QAM 06/14/21 07/29/23 History tablet,extended release 24 hr acetaminophen 500 mg tablet 1,000 mg PO TID PRN Pain 07/29/23 07/29/23 History ascorbic acid (vitamin C) 1,000 mg 1 g PO QAM 07/29/23 07/29/23 History tablet (Vitamin C) azelastine 137 mcg (0.1 %) nasal 1 spray intranasal BID 07/29/23 07/29/23 History spray aerosol diclofenac sodium 1 % topical gel 4 g topical TID PRN MODERATE PAIN 07/29/23 07/29/23 History IN FEET docusate sodium 100 mg capsule 100 mg PO HS 07/29/23 07/29/23 History empagliflozin 10 mg tablet 10 mg PO QAM 07/29/23 07/29/23 History (Jardiance) metoprolol succinate 25 mg 25 mg PO QAM 07/29/23 07/29/23 History tablet,extended release 24 hr ondansetron HCl 4 mg tablet 4 mg PO Q6 PRN Nausea And Vomiting 07/29/23 07/29/23 History semaglutide 1 mg/dose (4 mg/3 mL) 1 mg subcut WK 07/29/23 07/29/23 History subcutaneous pen injector (Ozempic) vitamin E (dl, acetate) 180 mg 180 mg PO QAM 07/29/23 07/29/23 History (400 unit) capsule cefdinir 300 mg capsule 300 mg PO BID #14 caps 07/31/23 Rx phenazopyridine 100 mg tablet 100 mg PO PC PRN pain #6 tabs 07/31/23 Rx (Pyridium) tamsulosin 0.4 mg capsule 0.4 mg PO DAILY #30 caps 07/31/23 Rx Hospital Stay Data Consultations 07/29/23 00:50 ED Decision to Admit Stat 07/29/23 02:27 Consult Urology Routine Procedures Performed Operation Date: 07/29/23 09:00 Actual Procedures p Cystoscopy, Left Retrograde Pyelogram, Left Ureteral Stent Insertion(Left) - Elias Knight MD Diagnostic Imagining Performed 07/28/23 21:09 CT abd pelvis wo con Stat 07/29/23 FL retrograde includes kub Routine Abdomen/Pelvis CT 07/28/23 21:09 Exam(s): CT ABDOMEN + PELVIS Without Contrast EXAM: CT Abdomen and Pelvis Without Intravenous Contrast CLINICAL HISTORY: Back Pain and fever TECHNIQUE: Axial computed tomography images of the abdomen and pelvis without intravenous contrast. CTDI is 23.75 mGy and DLP is 1165.62 mGy-cm. Automated exposure control was utilized for the study. A dose lowering technique was utilized adhering to the principles of ALARA. COMPARISON: CT abdomen and pelvis 06/14/2021 FINDINGS: Lung bases: Unremarkable. No mass. No consolidation. ABDOMEN: Liver: Unremarkable. Gallbladder and bile ducts: Cholecystectomy. No ductal dilation. Pancreas: Unremarkable. No ductal dilation. Spleen: Unremarkable. No splenomegaly. Adrenals: Unremarkable. No mass. Kidneys and ureters: Moderate left hydronephrosis secondary to a 5 x 3 9 mm proximal ureteral calculus. Additional nonobstructing renal calculi measure up to 6 mm. Simple appearing bilateral renal cysts are present, no follow up is needed. The kidneys are otherwise unremarkable. No hydronephrosis. No right hydronephrosis. Stomach and bowel: Diverticulosis. No obstruction. No mucosal thickening. PELVIS: Appendix: Normal appendix. Bladder: Unremarkable. No stones. Reproductive: Unremarkable as visualized. ABDOMEN and PELVIS: Intraperitoneal space: Unremarkable. No free air. No significant fluid collection. Bones/joints: There are degenerative changes of the spine. No acute fracture. No dislocation. Soft tissues: Unremarkable. Vasculature: Mild atherosclerosis. No abdominal aortic aneurysm. Lymph nodes: Unremarkable. No enlarged lymph nodes. IMPRESSION: 1. Moderate left hydronephrosis secondary to a 5 x 3 9 mm proximal ureteral calculus. 2. Additional nonobstructing renal calculi measure up to 6 mm. 3. Diverticulosis. Electronically signed by: Emilie Carcamo MD 07/28/23 23:09 PM Chest X-Ray 07/28/23 23:58 XR chest 1V portable HISTORY: 73 years-old Female renal failure acute renal failure COMPARISON: 05/24/2023 TECHNIQUE: AP view of the chest FINDINGS: Cardiac silhouette is enlarged. Median sternotomy with cardiac valvular prosthesis. No pneumothorax, pleural effusion or airspace consolidation. Bones appear grossly intact. IMPRESSION: No acute process. ACT 112: Negative or not required by law. The above report was generated using voice recognition software. It may contain grammatical, syntax or spelling errors. Electronically signed by: Chris Khan M.D. 07/29/2023 7:58 AM Retrograde Pyelogram 07/29/23 00:00 FL retrograde includes kub CLINICAL HISTORY: LT CYSTO, RETRO, STENTleft-sided cystourethrogram COMPARISON STUDY: CT 07/28/2023 FLUOROSCOPY TIME: 5.5 seconds FLUOROSCOPY IMAGES: 1 EXPOSURE DOSE: 0.70 mGy FINDINGS: A left ureteral stent proximal portion appears to be in satisfactory positioning. The distal portion of the stent was not imaged. IMPRESSION: Fluoroscopic assistance as above. ACT 112: Negative or not required by law. Electronically signed by: Chris Khan M.D. 07/29/2023 9:16 AM Pending Results Patient Have Any Pending Studies at Discharge: No Discharge Instructions Given to Patient (Per Discharging Provider) Ms. Escobar, You are being discharged back to your facility. You were seen and treated by the Urologist. They recommend close followup with their office after discharge. Please continue to take the antibiotics as prescribed and the tamsulosin as well as the Pyridium. Please keep close follow up with your primary care provider after discharge., as well as your urologist. Please do not hesitate to come back to the emergency room if your symptoms wor sen or return. It was a pleasure taking care of you while you were here. Total Time Total Time Spent Total Time Spent (In Minutes): 75
[2023-07-31] MEDS: CEFDINIR 300 MG CAP PO STA (11:24)
== END 2023-07-31 12:06 | disposition home or self-care (01) | DRG 854 ==
LOC: ED 20:27 → EDINP 23:59 → 2N 07-29 10:51